=== PATIENT | female | born 1980 | race Caucasian/White ===

== ENCOUNTER 2019-08-29 19:01 | Emergency (ER) | payer OTHER, SELFPAY ==
--- NOTE | 2019-08-29 19:04 | ED.GENADULT ---
HPI - General Adult General Chief complaint: Dental/Oral Stated complaint: Toothache/Kidney infection Time Seen by Provider: 08/29/19 19:16 Source: patient and RN notes reviewed Mode of arrival: ambulatory Limitations: no limitations History of Present Illness HPI narrative: 39-year-old female presents with multiple complaints. She reports history of kidney infections, urinary tract infections, kidney stones. Reports 3-day history of dysuria, foul-smelling odor, left flank pain, urgency. Reports pain is not as severe as it gets when she has kidney stones. She denies fever, malaise. In a separate complaint she reports right lower dental pain. Reports broken tooth that has been infected before, she does not have dental charts and has been unable to get the tooth repaired or pulled. Reports 1 week history of pain in that tooth. Denies facial swelling. MD complaint: Tooth ache, urinary tract infection Related Data Allergies Allergy/AdvReac Type Severity Reaction Status Date / Time No Known Allergies Allergy Verified 06/12/19 17:14 Review of Systems Review of Systems: Narrative: CONSTITUTIONAL: Denies malaise, chills, sweats, or fever. EYES: Denies visual changes, redness, or discharge. ENT: Denies rhinorrhea, congestion, sinus pain, otalgia or sore throat. Reports right lower dentalgia CARDIOVASCULAR: Denies chest pain, palpitations, or edema. RESPIRATORY: Denies cough or dyspnea. GASTROINTESTINAL: Reports suprapubic pressure. Denies abdominal pain, nausea, vomiting, diarrhea GENITOURINARY: Reports urgency, dysuria, left flank pain. Denies hematuria, frequency SKIN: Denies rash or itching. MUSCULOSKELETAL: Reports left flank pain. Denies back pain, joint pain, or myalgia. NEUROLOGIC: Denies numbness, weakness, or headache. All systems reviewed & are unremarkable except as noted in HPI and below PMFSH Social History Social History Smoking status: Current every day smoker Alcohol intake: never Comments At time of signature, agree with nursing past medical, surgical, social and family history. There is no relevant family history pertinent to the presenting complaint Exam Narrative: Exam Narrative: GENERAL: Well-appearing, well-nourished, and in no acute distress. HEAD: Normocephalic, atraumatic. EYES: PERRLA, conjunctivae clear, and EOMI. No nystagmus. ENT: Nares clear, no rhinorrhea or epistaxis. Mucous membranes moist. Oropharynx without edema, erythema or lesions. No drooling. Missing teeth, broken teeth, caries. Tooth 32 broken with caries, appears impacted. No periapical abscess visible, no facial swelling noted NECK: Supple. No lymphadenopathy. CHEST: No respiratory distress. Clear to auscultation. No bony deformities, no asymmetry. Speaks in full sentences. HEART: Regular rate and rhythm. No murmur heard. ABDOMEN: Soft, suprapubic tenderness, otherwise none tender, obese, normal active bowel sounds, no palpable masses. SKIN: Warm, dry. NEURO: Alert and oriented x3. PSYCH: Normal mood and affect Course Course Emergency Course: Discussed with patient limited diagnostic availability at the [facility]. Instructed patient to go to emergency room if symptoms worsen or do not improve. Instructed patient she needs to find a dentist to get her tooth taken care of. Patient is aware of diagnosis, understands and agrees to treatment plan. Anticipatory guidance given. Patient agrees to follow-up as directed and is aware of reasons to seek care at the emergency department. Portions of this record may have been created with voice recognition software Vital Signs Vital signs: Vital Signs Temperature 99.4 F 08/29/19 19:15 Pulse Rate 87 08/29/19 19:15 Respiratory Rate 16 08/29/19 19:15 Blood Pressure 104/90 08/29/19 19:15 Pulse Oximetry 98 08/29/19 19:15 Temperature 99.4 F 08/29/19 19:15 Pulse Rate 87 08/29/19 19:15 Respiratory Rate
[2019-08-29 19:15] VITALS: BP 104/90; PULSE 87; RESP 16; TEMP 37.4; O2SAT 98
== END 2019-08-29 19:30 | disposition home or self-care (01) ==
PROVIDERS: Emergency Provider Nurse Practitioner; PCP Emergency Medicine
DX: K08.89 Other specified disorders of teeth and supporting structures (principal); N39.0 Urinary tract infection, site not specified; F17.200 Nicotine dependence, unspecified, uncomplicated
CPT/HCPCS: 81003; 87077; 87086; 87088; 87186; 99213; G0463

== ENCOUNTER 2020-04-10 16:21 | Emergency (ER) | payer OTHER, SELFPAY ==
[2020-04-10 16:29] VITALS: BP 119/91; PULSE 87; RESP 18; TEMP 37; O2SAT 98
--- NOTE | 2020-04-10 16:33 | ED.DENTAL ---
HPI - Dental/Oral General Chief complaint: Dental/Oral Stated complaint: Tooth Pain Time Seen by Provider: 04/10/20 16:34 Source: patient and RN notes reviewed Mode of arrival: ambulatory Limitations: no limitations History of Present Illness HPI Narrative: 39-year-old female presents with concern for right upper and lower dental pain. Reports a history of dental pain, reports she cannot see a dentist because she does not have dental insurance. She was seen in August 2019 and June 2019 for dental pain. MD Complaint: tooth pain Teeth map: 1. Broken tooth 2. Broken tooth Related Data Home Medications Medication Instructions Recorded Confirmed topiramate [Topamax] 50 mg PO HS 04/10/20 04/10/20 venlafaxine [Effexor XR] 150 mg PO DAILY 04/10/20 04/10/20 Allergies Allergy/AdvReac Type Severity Reaction Status Date / Time No Known Allergies Allergy Verified 04/10/20 16:36 Review of Systems Review of Systems: Narrative: CONSTITUTIONAL: Denies malaise, chills, sweats, or fever. EYES: Denies visual changes, redness, or discharge. ENT: Denies rhinorrhea, congestion, sinus pain, otalgia or sore throat. Reports right upper and lower dental pain CARDIOVASCULAR: Denies chest pain, palpitations, or edema. RESPIRATORY: Denies cough or dyspnea. GASTROINTESTINAL: Denies abdominal pain, nausea, vomiting SKIN: Denies facial swelling MUSCULOSKELETAL: Denies myalgia. NEUROLOGIC: Denies headache. All systems reviewed & are unremarkable except as noted in HPI and below PMFSH Past Medical History Medical History (Updated 04/10/20 @ 16:41 by Radha Marin NP) HTN (hypertension) Kidney stone Umbilical hernia fixed in 2016 Ventral hernia without obstruction or gangrene Surgical History Surgical History H/O section x4 Hx of tonsillectomy Family History Family History Other Diabetes mellitus Hypertension Social History Social History Smoking status: Current every day smoker Alcohol intake: never Gender identity (if verbalized by the patient): Female Comments At time of signature, agree with nursing past medical, surgical, social and family history. There is no relevant family history pertinent to the presenting complaint Exam Narrative: Exam Narrative: GENERAL: Well-appearing, well-nourished, and in no acute distress. HEAD: Normocephalic, atraumatic. EYES: PERRLA, conjunctivae clear, and EOMI. No nystagmus. ENT: Nares clear. Mucous membranes moist. Oropharynx without edema, erythema or lesions. Tonsils not enlarged and without exudate. Many broken teeth, missing teeth, caries. No periapical abscess noted NECK: Supple. No lymphadenopathy. CHEST: No respiratory distress. Speaks in full sentences. HEART: Regular rate and rhythm. SKIN: Warm, dry, no rash. NEURO: Alert and oriented x3. PSYCH: Normal mood and affect Course Course Emergency Course: Patient is aware of diagnosis, understands and agrees to treatment plan. Anticipatory guidance given. Patient agrees to follow-up as directed and is aware of reasons to seek care at the emergency department. Portions of this record may have been created with voice recognition software Vital Signs Vital signs: Vital Signs Temperature 98.6 F 04/10/20 16:29 Pulse Rate 87 04/10/20 16:29 Respiratory Rate 18 04/10/20 16:29 Blood Pressure 119/91 H 04/10/20 16:29 Pulse Oximetry 98 04/10/20 16:29 Temperature 98.6 F 04/10/20 16:29 Pulse Rate 87 04/10/20 16:29 Respiratory Rate 18 04/10/20 16:29 Blood Pressure 119/91 H 04/10/20 16:29 Pulse Oximetry 98 04/10/20 16:29 Reviewed. MDM - Dental/Oral MDM Narrative Medical decision making narrative: Patients pain and complaint coupled with physical findings are consistant with dentalgia. There are no
== END 2020-04-10 16:45 | disposition home or self-care (01) ==
PROVIDERS: Emergency Provider Nurse Practitioner; PCP Emergency Medicine
DX: K08.89 Other specified disorders of teeth and supporting structures (principal); F17.200 Nicotine dependence, unspecified, uncomplicated; I10 Essential (primary) hypertension; F41.9 Anxiety disorder, unspecified
CPT/HCPCS: 99213; G0463

== ENCOUNTER 2020-04-20 16:37 | Emergency (ER) | payer OTHER, SELFPAY ==
[2020-04-20 16:46] VITALS: BP 141/102; PULSE 101; RESP 16; TEMP 36.8; O2SAT 100
--- NOTE | 2020-04-20 16:46 | ED.GENADULT ---
HPI - General Adult General Chief complaint: Dental/Oral Stated complaint: Tooth Pain Time Seen by Provider: 04/20/20 16:46 Source: patient Mode of arrival: ambulatory Limitations: no limitations History of Present Illness HPI narrative: 39-year-old female patient presents to the [facility] with complaints of dental pain. Patient states she was seen here about 10 days ago by another provider and was given Augmentin and ketorolac at that time. Patient was given a list to follow-up with dentist but states that she never called anyone. Patient states that she does not have dental insurance and cannot afford to see a dentist. Patient states she finished her antibiotics yesterday however she woke up this morning continues to have pain to the broken tooth on the right lower oral cavity. Denies any fevers, body aches or chills. Denies any chest pain or shortness of breath. Related Data Home Medications Medication Instructions Recorded Confirmed topiramate [Topamax] 50 mg PO HS 04/10/20 04/10/20 venlafaxine [Effexor XR] 150 mg PO DAILY 04/10/20 04/10/20 Allergies Allergy/AdvReac Type Severity Reaction Status Date / Time No Known Allergies Allergy Verified 04/10/20 16:36 Review of Systems Review of Systems: Narrative: CONSTITUTIONAL: Denies fever, chills, or sweats. EYES: Denies visual changes, redness, or discharge. ENT: Denies rhinorrhea, congestion, sore throat, or otalgia. Positive right lower dental pain x2 weeks CARDIOVASCULAR: Denies chest pain, palpitations, or edema. RESPIRATORY: Denies cough or dyspnea. GASTROINTESTINAL: Denies abdominal pain, nausea, vomiting, or diarrhea. GENITOURINARY: Denies dysuria or hematuria. SKIN: Denies rash or itching. MUSCULOSKELETAL: Denies back pain, joint pain, or myalgia. NEUROLOGIC: Denies headache, numbness, or weakness. PSYCHIATRIC: Denies anxiety or depression. [facility] Past Medical History Medical History (Updated 04/20/20 @ 16:57 by CARLEEN Gill) HTN (hypertension) Kidney stone Umbilical hernia fixed in 2016 Ventral hernia without obstruction or gangrene Surgical History Surgical History H/O section x4 Hx of tonsillectomy Family History Family History Other Diabetes mellitus Hypertension Social History Social History Smoking status: Current every day smoker Alcohol intake: never Gender identity (if verbalized by the patient): Female Comments At the time of my signature I agree with nursing past medical history, surgical, social, and family history. There is no relevant family history pertinent to the presenting complaint. Exam Narrative: Exam Narrative: GENERAL: Well-appearing, well-nourished, and in no acute distress. HEAD: Normocephalic, atraumatic. EYES: PERRLA and EOMI. ENT: Nares clear, no rhinorrhea or epistaxis. Mucous membranes moist. Patient has a fractured tooth noted to the right lower molar. There is some surrounding erythema and tenderness. No swelling noted to the outside of the cheek. No obvious abscess noted at this time. NECK: Supple. No lymphadenopathy CHEST: Clear to auscultation. No respiratory distress. HEART: Regular rate and rhythm. No murmur heard. Normal peripheral pulses. ABDOMEN: Soft, nontender, nondistended, normal active bowel sounds. EXTREMITIES: Normal range of motion. No edema. SKIN: Warm, dry, no rash. NEURO: No focal deficits. Alert and oriented x3. Course Vital Signs Vital signs: Vital Signs Temperature 36.8 C 04/20/20 16:46 Pulse Rate 101 H 04/20/20 16:46 Respiratory Rate 16 04/20/20 16:46 Blood Pressure 141/102 H 04/20/20 16:46 Pulse Oximetry 100 04/20/20 16:46 Temperature 36.8 C 04/20/20 16:46 Pulse Rate 101 H 04/20/20 16:46 Respiratory Rate 16 04/20/20 16:46 Blood Pressure 141/102 H 04/03
== END 2020-04-20 17:01 | disposition home or self-care (01) ==
PROVIDERS: Emergency Provider Nurse Practitioner Family; PCP Emergency Medicine
DX: K08.89 Other specified disorders of teeth and supporting structures (principal); S02.5XXA Fracture of tooth (traumatic), initial encounter for closed fracture; X58.XXXA Exposure to other specified factors, initial encounter; F17.200 Nicotine dependence, unspecified, uncomplicated; I10 Essential (primary) hypertension
CPT/HCPCS: 99213; G0463

== ENCOUNTER 2020-07-01 15:17 | Outpatient (CLI) | payer OTHER, SELFPAY ==
--- NOTE | ~2020-07-01 | MR_ITS ---
EXAMINATION: MR brain/brain stem wo con EXAM DATE: 07/01/2020 16:00 INDICATION: Headache. TECHNIQUE: Magnetic resonance imaging (MRI) of the brain/brain stem obtained without contrast. Sagitt al T1, axial diffusion, gradient echo (T2*), T1, T2, FLAIR sequences obtained. There is no prior st udy for comparison. FINDINGS: Empty sellar turcica, finding which can be associated with idiopathic increased intracrania l pressure (pseudotumor cerebri). Some CSF fluid also surrounding the optic nerves which are otherwis e unremarkable. There are no areas of restricted diffusion to suggest acute infarction. There is no acute hemorrhage seen on the T2*, a hemosiderin sensitive sequence. No intraparenchymal brain mass. The ventricles are normal in size. There are no extra-axial collections. Flow voids are seen in the cerebral arteries on the T2-weighted sequences consistent with their expected patency. The orbits a re unremarkable. Soft tissue is unremarkable. IMPRESSION: 1. Empty sella, possible pseudotumor cerebri. 2. Otherwise unremarkable brain MRI. Reviewed, dictated and finalized at location B. TRICAL CONTROLS DESIGNER
== END 2020-07-01 15:18 | disposition home or self-care (01) ==
LOC: ANHIMG 15:18
PROVIDERS: PCP Emergency Medicine; Visit Provider Emergency Medicine
DX: R51.9 Headache, unspecified (principal)
CPT/HCPCS: 70551

== ENCOUNTER → 2020-09-09 02:33 | Outpatient (CLI) | payer OTHER, SELFPAY ==
[2020-09-09 22:46] LABS: SARS-CoV-2 RNA PCR Negative
== END ==
PROVIDERS: PCP Emergency Medicine; Visit Provider Psychiatry & Neurology Neurology
DX: Z01.812 Encounter for preprocedural laboratory examination (principal); Z20.822 Contact with and (suspected) exposure to COVID-19
CPT/HCPCS: C9803; U0003; U0005

== ENCOUNTER 2020-09-12 08:49 | Outpatient (CLI) | payer OTHER, SELFPAY ==
[2020-09-08 14:48] VITALS: BMI 37.3
[2020-09-12] VITALS (7 sets, daily range): BP systolic 123–155; BP diastolic 85–97; PULSE 65–81; RESP 16–28; O2SAT 96–98
--- NOTE | ~2020-09-12 | XR_ITS ---
EXAMINATION: XR lumbar puncture diagnostic DATE: 09/12/2020 12:01 INDICATION: Headache. TECHNIQUE: The procedure including the risks, benefits, and alternatives was discussed with the patie nt. Risks discussed included spinal headache, bleeding, and infection. The patient understood the ris ks and agreed to proceed. A timeout was performed to verify the patient's name, date of , and procedure to be performed. The skin overlying the L3-L4 and L2-L3 level was prepped and draped in u sual sterile fashion. Subcutaneous 1% lidocaine was used for local anesthesia. A 20 gauge spinal ne edle was advanced under fluoroscopic guidance. The needle was removed and the entry site was cleaned and dressed. There were no immediate complications. Fluoroscopy exposure time was 0.2 minutes. The t otal number of images was 3. FINDINGS: Real-time fluoroscopy demonstrates the needle at the L2-L3 level. The opening pressure was 23 cm water (Normal range is variably defined as 6-20 cm water and up to 25 cm water in obese patient s. Pressure >25 cm water is one of the modified Dandy criteria for idiopathic intracranial hypertensi on). 14 mL of clear, colorless fluid was collected in 4 tubes. IMPRESSION: 1. Successful fluoro-guided lumbar puncture. 2. Opening pressure of 23 cm water. Reviewed, dictated and finalized at location A. ESTING MANAGER
[2020-09-12 09:11] LABS: Mean Platelet Volume 11.1 fl (7.4-10.4); Platelet Count Result 250 k/mm3 (150-375)
[2020-09-12 09:23] LABS: INR 0.9; Prothrombin Time 12.8 Seconds (11.1-14.7)
[2020-09-12 12:02] LABS: Glucose CSF 58 mg/dL (40-70); Total Protein CSF 43 mg/dL (12-60)
[2020-09-12 12:10] LABS: Lymphocytes CSF 96 % (40-80); Monocytes CSF 4 % (15-45)
[2020-09-12 12:12] LABS: Appearance CSF Clear (Clear); CSF source CSF; Color CSF Colorless (Colorless); Nucleated Cell CSF 3 /uL (0-5); Red Blood Cell CSF 26 (0-2)
--- NOTE | 2020-09-12 13:55 | SUR.PHASEII ---
Dr. Casey updated on pt and OK with discharge
== END 2020-09-12 13:58 | disposition home or self-care (01) ==
PROVIDERS: Radiology Diagnostic Radiology; PCP Emergency Medicine; Visit Provider Psychiatry & Neurology Neurology
DX: R51.9 Headache, unspecified (principal)
CPT/HCPCS: 36415; 62328; 82945; 84157; 85049; 85610; 87070; 89051

== ENCOUNTER 2020-11-20 16:31 | Outpatient (CLI) | payer OTHER, SELFPAY ==
--- NOTE | ~2020-11-20 | MM_ITS ---
EXAMINATION: MM screening [facility] BI w tuan HISTORY: Screening TECHNIQUE: Craniocaudal and mediolateral oblique 3-D tomosynthesis images were obtained and synthetic 2-D images were generated. CAD analysis was submitted and interpreted. COMPARISON: 02/05/2019 BREAST PARENCHYMAL COMPOSITION: Breast composed of scattered areas of fibroglandular density. FINDINGS: Diminished size of masses in the upper outer quadrant of the left breast, previously charac terized as cysts by ultrasound. No new masses, calcifications or architectural distortion are identif ied to suggest malignancy. IMPRESSION: 1. No mammographic evidence of malignancy. 2. Recommend routine screening mammography in one year. BI-RADS Category 2: Benign finding(s). Reviewed, dictated and finalized at location A.
== END 2020-11-20 16:32 | disposition home or self-care (01) ==
LOC: ANHIMG 16:33
PROVIDERS: PCP Emergency Medicine; Visit Provider Emergency Medicine
DX: Z12.31 Encounter for screening mammogram for malignant neoplasm of breast (principal)
CPT/HCPCS: 77063; 77067

== ENCOUNTER 2021-06-14 15:21 | Emergency (ER) | payer OTHER, SELFPAY ==
[2021-06-14 15:34] VITALS: BP 131/88; PULSE 96; RESP 16; TEMP 37.6; O2SAT 100
--- NOTE | 2021-06-14 15:45 | ED.GENADULT ---
HPI - General Adult General Chief complaint: Back Pain/Injury Stated complaint: Back Pain,Neck Pain Time Seen by Provider: 06/14/21 15:45 Source: patient and family History of Present Illness HPI narrative: Patient was in close contact with a coworker who recently tested positive for COVID-19. Patient is fully vaccinated for COVID-19 but has not had her booster yet. Patient states she has had nausea a few loose stools generalized body aches and chills. No shortness of breath and no chest pain Related Data Home Medications Medication Instructions Recorded Confirmed venlafaxine [Effexor XR] 150 mg PO DAILY 04/10/20 06/14/21 tramadol 50 mg PO TID 09/08/20 06/14/21 buspirone 10 mg PO DAILY 06/14/21 06/14/21 irbesartan 150 mg PO DAILY 06/14/21 06/14/21 Allergies Allergy/AdvReac Type Severity Reaction Status Date / Time No Known Allergies Allergy Verified 06/14/21 15:41 Review of Systems Review of Systems: CONSTITUTIONAL: Denies chills, or sweats. Reports fever and generalized body aches EYES: Denies visual changes, redness, or discharge. ENT: Denies otalgia. Reports nasal congestion runny nose and sore throat CARDIOVASCULAR: Denies chest pain, palpitations, or edema. RESPIRATORY: Denies dyspnea. Reports occasional cough GASTROINTESTINAL: Denies abdominal pain, nausea, vomiting, or diarrhea. GENITOURINARY: Denies dysuria or hematuria. SKIN: Denies rash or itching. MUSCULOSKELETAL: Denies back pain, joint pain, or myalgia. Reports generalized body aches NEUROLOGIC: Denies headache, numbness, or weakness. PSYCHIATRIC: Denies anxiety or depression. [facility] Past Medical History Medical History (Updated 06/14/21 @ 15:53 by CARLEEN Montanez) HTN (hypertension) Kidney stone Umbilical hernia fixed in 2016 Ventral hernia without obstruction or gangrene Surgical History Surgical History H/O section x4 Hx of tonsillectomy Family History Family History Other Diabetes mellitus Hypertension Social History Social History (Reviewed 04/20/20 @ 16:46 by DON Gill Smoking status: Current every day smoker Alcohol intake: never Gender identity (if verbalized by the patient): Female Comments At time of signature, agree with nursing past medical, surgical, social and family history. There is no relevant family history pertinent to the presenting complaint Exam Narrative: The patient is a well-developed, well-nourished in no acute distress. SKIN: Skin is warm and dry without erythema, swelling or exudate. There is good turgor. No tenting. HEAD: Atraumatic. Normocephalic. No temporal or scalp tenderness. EYES: Moist and bright. Sclera and conjunctivae normal. No discharge. PERRLA. Extraocular motions intact. Gross visual acuity intact. EARS: Pinna is normal shape and contour. Clear external auditory canals. TM pearly fountain with good cone of light, no erythema or suppuration. Bilateral cerumen noted no gross hearing deficit. NOSE: pink, moist mucosa with good air movement. Clear rhinorrhea without nasal flaring. Septum midline. Mouth: moist mucous membranes. THROAT; mild erythema noted to posterior oropharynx with moderate postnasal drainage. Without exudate or ulceration.. Uvula midline. Normal movement of soft palate. NECK: Supple and nontender with full range of motion without discomfort. No meningeal signs. LUNGS: Equal and bilateral breath sounds without wheezes, rales or rhonchi. CHEST: The chest wall is without retractions or use of accessory muscles. HEART: Has a regular rate and rhythm without murmur, gallops, click or rub. ABDOMEN: Soft, nontender with positive active bowel sounds. No rebound tenderness. EXTREMITIES: Without cyanosis, clubbing or edema. Equal 2+ distal pulses and 2 second capillary refill noted. NEUROLOGIC: alert, active, . The patient moves all extremities
== END 2021-06-14 16:00 | disposition home or self-care (01) ==
PROVIDERS: Emergency Provider Nurse Practitioner Family; PCP Emergency Medicine
DX: J06.9 Acute upper respiratory infection, unspecified (principal); Z20.822 Contact with and (suspected) exposure to COVID-19; F17.200 Nicotine dependence, unspecified, uncomplicated; I10 Essential (primary) hypertension
CPT/HCPCS: 99213; G0463

== ENCOUNTER → 2021-06-15 08:35 | Outpatient (CLI) | payer OTHER, SELFPAY ==
[2021-06-15 19:24] LABS: SARS-CoV-2 RNA PCR Negative
== END ==
PROVIDERS: PCP Emergency Medicine; Visit Provider Nurse Practitioner Family
DX: J06.9 Acute upper respiratory infection, unspecified (principal); Z20.822 Contact with and (suspected) exposure to COVID-19
CPT/HCPCS: C9803; U0003; U0005

== ENCOUNTER 2022-07-14 09:50 | Outpatient (CLI) | payer OTHER, SELFPAY ==
--- NOTE | ~2022-07-14 | CT_ITS ---
EXAMINATION: CT abdomen pelvis wo/w con DATE: 07/14/2022 10:32 INDICATION: History of renal stones TECHNIQUE: Computed tomography (CT) of the abdomen and pelvis was performed without intravenous contr ast. CT of the abdomen and pelvis was then performed with a total of 130 mL Omnipaque 350 intravenous contrast using a double-bolus technique for simultaneous opacification of the renal parenchyma and r enal collecting system. The dose-length product (DLP) was 2515.28 mGy-cm. Automated exposure control and iterative reconstruction technique were employed. COMPARISON: 03/27/2019 FINDINGS: The lung bases are clear. The heart size is normal. There is a small sliding hiatal hernia. The liver, spleen, pancreas, gallbladder, and adrenal glands are normal. There is a 2 mm stone of th e left mid ureter. There is no significant hydronephrosis or hydroureter however there is mild inflam matory change near the left renal pelvis. There are at least six stones of the left kidney which jose ure up to 10 mm. There are three nonobstructing stones of the right kidney which measure up to 4 mm. There is a 6 mm hemorrhagic cyst of the right kidney. Cysts of the right kidney measure up to 4 cm. T here is a 5 mm cyst of the left kidney. No suspicious renal or urothelial lesion identified. There ar e areas of cortical scarring in the left kidney. No pathologically enlarged abdominal or pelvic lymph nodes are identified. There is no free intraperitoneal gas or evidence of bowel obstruction. The scooby endix is normal. There is moderate lumbar spondylosis at L4-5. There is a small umbilical hernia cont aining fat. IMPRESSION: 1. 2 mm stone of the left mid ureter. 2. Bilateral nonobstructing nephrolithiasis. 3. No suspicious renal or urothelial lesion identified. Reviewed, dictated and finalized at location B. TRIC LOCOMOTIVE CRANE OPERATOR
[2022-07-14 10:15] LABS: Estimated Glomerular Filt Rate 54
== END 2022-07-14 09:51 | disposition home or self-care (01) ==
LOC: ANHIMG 09:51
PROVIDERS: PCP Emergency Medicine; Visit Provider Emergency Medicine
DX: N20.2 Calculus of kidney with calculus of ureter (principal)
CPT/HCPCS: 74178; Q9967

== ENCOUNTER 2022-08-26 16:36 | Outpatient (CLI) | payer OTHER, SELFPAY ==
--- NOTE | ~2022-08-26 | MM_ITS ---
EXAMINATION: MM screening [facility] BI w tuan HISTORY: Screening mammogram TECHNIQUE: Craniocaudal and mediolateral oblique 3-D tomosynthesis images were obtained and synthetic 2-D images were generated. CAD analysis was submitted and interpreted. COMPARISON: 11/20/2020 bilateral screening mammogram 02/05/2019 bilateral diagnostic mammogram and limited left breast ultrasound examination BREAST PARENCHYMAL COMPOSITION: There are scattered areas of fibroglandular density. FINDINGS: There is no evidence of suspicious mass, calcification, or architectural distortion to sugg est malignancy in either breast. There has been no suspicious interval change. IMPRESSION: 1. No mammographic evidence of malignancy. 2. Recommend routine screening mammography in one year. BI-RADS Category 1: Negative Reviewed, dictated and finalized at location A. WAL SPECIALIST
== END 2022-08-26 16:37 | disposition home or self-care (01) ==
PROVIDERS: PCP Emergency Medicine; Visit Provider Emergency Medicine
DX: Z12.31 Encounter for screening mammogram for malignant neoplasm of breast (principal)
CPT/HCPCS: 77063; 77067

== ENCOUNTER 2022-10-09 17:45 | Emergency (ER) | payer BC, OTHER, SELFPAY ==
--- NOTE | 2022-10-09 17:51 | ED.GENADULT ---
HPI - General Adult General Chief complaint: Abdominal Pain Stated complaint: sever abd pain left side/tooth pain Time Seen by Provider: 10/09/22 17:54 Source: patient, RN notes reviewed and old records reviewed Mode of arrival: ambulatory Limitations: no limitations History of Present Illness HPI narrative: 42-year-old female presents to the [facility] with left for about sided abdominal pain/left flank pain since this morning. Has taken tylenol about 3 hours [employer]. Reports fever, still febrile in clinic. Patient states ?it feels like my insides are being ripped out. ? Patient has a history of pyelonephritis, kidney stones. Denies any nausea or vomiting. Denies any chest pain or shortness of breath. Patient is also complaining of left lower dental pain and swelling. Onset (ago): hour(s) (12) Related Data Home Medications Medication Instructions Recorded Confirmed venlafaxine 150 mg 150 mg PO DAILY 04/10/20 06/14/21 capsule,extended release 24 hr (Effexor XR) tramadol 50 mg tablet 50 mg PO TID 09/08/20 06/14/21 buspirone 10 mg tablet 10 mg PO DAILY 06/14/21 06/14/21 irbesartan 150 mg tablet 150 mg PO DAILY 06/14/21 06/14/21 atogepant 60 mg tablet (Qulipta) 60 mg PO DAILY 10/09/22 10/09/22 indomethacin 50 mg capsule 50 mg PO DAILY 10/09/22 10/09/22 omeprazole 20 mg capsule,delayed 20 mg PO DAILY 10/09/22 10/09/22 release phentermine 37.5 mg tablet 37.5 mg PO DAILY 10/09/22 10/09/22 Allergies Allergy/AdvReac Type Severity Reaction Status Date / Time No Known Allergies Allergy Verified 10/09/22 17:53 Review of Systems Review of Systems: All systems reviewed & are unremarkable except as noted in HPI and below Constitutional: Constitutional: Reports no additional constitutional complaints Eyes: Eyes: Reports no additional eye complaints ENT: Reports as per HPI and Reports dental pain Cardiovascular: Cardiovascular: Reports no additional cardiovascular complaints, Denies chest pain and Denies dyspnea Respiratory: Respiratory: Reports no additional respiratory complaints, Denies chest congestion, Denies cough and Denies dyspnea Gastrointestinal: Gastrointestinal: Reports as per HPI, Reports abdominal pain, Denies nausea and Denies vomiting Genitourinary: Genitourinary: Reports as per HPI Musculoskeletal: Musculoskeletal: Reports no additional musculoskeletal complaints Integumentary/Breasts: Skin/Breast: Reports system reviewed and no additional complaints, except as docu Neurologic: Reports system reviewed and no additional complaints, except as documented Psychiatric: Psychiatric: Reports no additional psychiatric complaints Allergic/Immunologic: Allergic/Immunologic: Reports no additional allergic/immunologic complaints PMFSH Past Medical History Medical History (Updated 10/09/22 @ 18:20 by Radha Brandt APRN) HTN (hypertension) Kidney stone Umbilical hernia fixed in 2016 Ventral hernia without obstruction or gangrene Surgical History Surgical History H/O section x4 Hx of tonsillectomy Family History Family History Other Diabetes mellitus Hypertension Social History Social History Smoking status: Current every day smoker Alcohol intake: never Gender identity (if verbalized by the patient): Female Comments At the time of my signature, I reviewed and agree with the nursing past medical, surgical, social, and family history. There is no relevant family history pertinent to the patient complaint. Exam Const: General: cooperative, healthy appearing, comfortable, no acute distress, well developed, alert and well nourished Nutritional Appearance: well nourished and obese Orientation/consciousness: patient oriented x3 Limitations: no limitations HENMT: Head: normal to inspection Ears: hearing gross
[2022-10-09 18:00] VITALS: BP 117/80; PULSE 138; RESP 16; TEMP 38.7; O2SAT 98
[2022-10-09 18:18] VITALS: BP 117/80; PULSE 138; RESP 16; TEMP 38.7; O2SAT 98
== END 2022-10-09 18:13 | disposition short-term general hospital (02) ==
PROVIDERS: Emergency Provider Nurse Practitioner; PCP Emergency Medicine
DX: R10.9 Unspecified abdominal pain (principal); K04.7 Periapical abscess without sinus; F17.200 Nicotine dependence, unspecified, uncomplicated; I10 Essential (primary) hypertension
CPT/HCPCS: 81003; 99211; G0463

== ENCOUNTER 2022-10-09 18:32 | Inpatient (IN) | payer BC, OTHER, SELFPAY ==
--- NOTE | ~2022-10-09 | XR_ITS ---
EXAMINATION: XR retrograde pyelo w/stent LT DATE: 10/10/2022 9:15 CDT INDICATION: CYSTO/RETRO STENT PLACEMENT ON LEFT . TECHNIQUE: 3 fluoroscopic images including a cine clip of 19 images of the left abdomen were obtained during cystoscopy and left retrograde stent placement performed by the surgeon. I was not present in the operating room. Fluoroscopy exposure time was 16.7 seconds. DAP [id number] mGym2. COMPARISON: CTA chest abdomen pelvis 10/09/2022 FINDINGS: Cine images demonstrate contrast filling a normal diameter left ureter. Small defects in the proximal ureter left UPJ likely represent the previously documented stones. Ureteral stent deployment, proxim al coil projecting over the expected location. Distal coil not imaged. IMPRESSION: Fluoroscopic documentation of cystoscopy and left retrograde stent placement. Please refer to the ope rative note for complete procedural details . Reviewed, dictated and finalized at location K. IMPRESSION: Fluoroscopic documentation of cystoscopy and left retrograde stent placement. P lease refer to the operative note for complete procedural details .
--- NOTE | ~2022-10-09 | CT_ITS ---
EXAMINATION: CTA chest abdomen pelvis DATE: 10/09/2022 21:17 INDICATION: Chest pain, abdominal pain, back pain rule out dis . TECHNIQUE: Computed tomography angiography (CTA) of the chest, abdomen, and pelvis was performed with 100 mL Omnipaque-350 intravenous contrast, timed for arterial phase imaging. Automated exposure cont rol and iterative reconstruction technique were employed. The dose-length product was 1550.05 mGy-cm. COMPARISON: CT abdomen and pelvis 07/14/2022, 03/27/2019 FINDINGS: CHEST: Thoracic aorta: No significant dilation or calcification. Lung parenchyma and airways: Lungs and airways are clear. Thoracic inlet, axillae and chest wall: No thyroid or soft tissue mass. No axillary lymphadenopathy. Mediastinum: No mass or lymphadenopathy. Heart and pericardium: Normal heart size. No pericardial effusion. Coronary artery calcifications: Absent. Pleura: No effusion or mass. Thoracic bones: No acute osseous finding in the chest. ABDOMEN/PELVIS: Liver: Mild hepatomegaly. Diffuse fatty infiltration. Biliary/Gallbladder: Distended gallbladder. No stones, wall thickening, pericholecystic fluid. No michelle e duct dilation. Pancreas: No mass or duct dilation. Spleen: Normal. Adrenals:No mass. Kidneys: Moderate caliectasis and pelviectasis on the left. 7 mm calcification in the left UVJ. 4 mm calcification in the proximal left ureter. Mild left perinephric stranding. Delayed left nephrogram w ith patchy parenchymal enhancement. Multiple additional nonobstructing bilateral renal calculi. Left renal scarring. Right renal cysts and lesions that are too small to characterize but also likely repr esent cysts. GI tract: Mild distal esophageal and gastric wall edema No small or large bowel dilation. Normal appe ndix. Mesentery/Peritoneum: No ascites, mass, or free air. Retroperitoneum: No mass . Mild atherosclerotic abdominal aortic and/or arterial calcifications. Pelvis: Pelvic organs are within normal limits Soft Tissues: Small fat-containing uncomplicated umbilical hernia Abdominopelvic bones: No acute osseous finding in the abdomen/pelvis. IMPRESSION: 1. 7 mm left UPJ and 4 mm proximal left ureteral calcifications causing moderate obstructive uropathy , possibly complicated by pyelonephritis. 2. Mild esophagitis/gastritis. 3. Gallbladder hydrops, possibly related to fasting, correlate with right upper quadrant pain and michelle iary labs. 4. No CT evidence of aortic dissection. Reviewed, dictated and finalized at location K. IMPRESSION: 1. 7 mm left UPJ and 4 mm proximal left ureteral calcifications causing moderat e obstructive uropathy, possibly complicated by pyelonephritis. 2. Mild esophagitis/gastritis. 3. Gallbladder hydrops, possibly related to fasting, correlate with right upper quadrant pain and biliary labs. 4. No CT evidence of aortic dissection.
[2022-10-09 18:39] VITALS: BP 125/85; PULSE 132; RESP 18; TEMP 37.1; O2SAT 99
--- NOTE | 2022-10-09 18:42 | ECG_ITS ---
Measurements Intervals [place] Rate: 67 P: 37 CO: 141 QRS: -3 QRSD: 94 T: 23 QT: 372 QTc: 394 Interpretive Statements SINUS RHYTHM LOW QRS VOLTAGE IN PRECORDIAL LEADS BORDERLINE ECG NO PREVIOUS ECG AVAILABLE FOR COMPARISON Electronically Signed On 10-10-2022 13:38:06 CDT by Norberto Strong M.D.
[2022-10-09 19:05] LABS: Basophils Absolute Auto 0.1 K/mm3 (0.0-0.1); Basophils Percent Auto 0.4 % (0.2-1.2); Eosinophils Percent Auto 0.2 % (0-4.4); Hemoglobin 13.3 g/dL (12.0-15.0); Immature Granulocyte Absolute 0.06 K/mm3 (0.00-0.031); Immature Granulocyte Percent A 0.4 % (0-0.5); Lymphocytes Absolute Auto 1.12 K/mm3 (0.9-3.2); Lymphocytes Percent Auto 7.7 % (18.3-44.2); Mean Corpuscular HGB Conc 31.7 g/dl (32-36); Mean Corpuscular Hemoglobin 31.3 pg (26-34); Mean Corpuscular Volume 98.8 fl (80-100); Monocytes Absolute Auto 0.1 K/mm3 (0.1-0.6); Monocytes Percent Auto 0.4 % (2.6-8.5); Neutrophils Absolute Auto 13.1 K/mm3 (1.3-6.7); Neutrophils Percent Auto 90.9 % (45.5-73.1); Platelet Count Result 245 k/mm3 (150-375); Red Blood Count 4.25 M/mm3 (4.2-5.4); Red Cell Distribution Width 12.9 % (11.5-14.5); White Blood Count 14.5 K/mm3 (4.5-10.0)
[2022-10-09 19:15] LABS: Alanine Aminotransferase 47 U/L (6-35); Albumin Level 4.5 g/dL (3.5-5.1); Alkaline Phosphatase 120 U/L (38-126); Anion Gap 13 mmol/L (8-16); Aspartate Amino Transferase 52 U/L (14-36); Bilirubin,Total 0.7 mg/dL (0.2-1.3); Blood Urea Nitrogen 17 mg/dL (7-17); Calcium 9.2 mg/dL (8.4-10.2); Carbon Dioxide 26 mmol/L (22-30); Chloride 101 mmol/L (98-107); Estimated CRCL calculation 73 ml/min; Estimated Glomerular Filt Rate 60; Glucose 113 mg/dL (65-110); Lipase 53 U/L (23-300); Potassium 3.7 mmol/L (3.4-5.0); Sodium 140 mmol/L (137-145)
--- NOTE | 2022-10-09 19:15 | ED.ABDPAIN ---
HPI - Abdominal Pain General Chief Complaint: Abdominal Pain Stated Complaint: left flank pain Time Seen by Provider: 10/09/22 19:15 Source: patient and family History of Present Illness HPI narrative: 42 years old white female presented to the ED with left lower quadrant pain started 5 AM today, gradually got worse. History of kidney stone. Patient is screaming, saying that he is going to , she have sepsis all over her blood she can feel it, she had pain going all over her abdomen right now going to her lower extremities and going to her back and chest. And her neck hurt, with headache Related Data Home Medications Medication Instructions Recorded Confirmed venlafaxine 150 mg 150 mg PO DAILY 04/10/20 10/09/22 capsule,extended release 24 hr (Effexor XR) tramadol 50 mg tablet 50 mg PO TID 09/08/20 10/09/22 buspirone 10 mg tablet 10 mg PO DAILY 06/14/21 10/09/22 irbesartan 150 mg tablet 150 mg PO DAILY 06/14/21 10/09/22 atogepant 60 mg tablet (Qulipta) 60 mg PO DAILY 10/09/22 10/09/22 indomethacin 50 mg capsule 50 mg PO DAILY 10/09/22 10/09/22 omeprazole 20 mg capsule,delayed 20 mg PO DAILY 10/09/22 10/09/22 release phentermine 37.5 mg tablet 37.5 mg PO DAILY 10/09/22 10/09/22 Allergies Allergy/AdvReac Type Severity Reaction Status Date / Time No Known Allergies Allergy Verified 10/09/22 17:53 Review of Systems Review of Systems: All systems reviewed & are unremarkable except as noted in HPI and below PMFSH Past Medical History Medical History (Updated 10/09/22 @ 22:21 by Vivi Morales MD) HTN (hypertension) Kidney stone Umbilical hernia fixed in 2016 Ventral hernia without obstruction or gangrene Surgical History Surgical History H/O section x4 Hx of tonsillectomy Family History Family History Other Diabetes mellitus Hypertension Social History Social History Smoking status: Current every day smoker Alcohol intake: never Gender identity (if verbalized by the patient): Female Exam Narrative: General appearance: Well-developed, well-nourished, restless, anxious, cannot lay still, screaming, crying Skin: Normal color Head: Normocephalic, nontraumatic Eyes: Clear conjunctiva Neck: Supple, nontender Chest and respiratory: Airway patent, no respiratory distress, no accessory muscle use Heart: Tachycardia Abdomen: Diffuse tenderness mainly left lower quadrant Vascular: Normal peripheral pulses, normal capillary refill. Musculoskeletal: Normal range of motion, thoracic spine tenderness, no bruises or rash Neurologic: Alert and oriented ?3, agitated, anxious, cannot listen to questions Course Reevaluation(s) Reevaluation #1: Patient got better immediately after 2 mg of Ativan IM, later 0.5 mg Dilaudid IV and 4 mg of Zofran IV. Currently patient feeling much better, calm and cooperative Date: 10/09/22 Time: 22:14 Vital Signs Vital signs: Vital Signs Temperature 37.1 C 10/09/22 18:39 Pulse Rate 132 H 10/09/22 18:39 Respiratory Rate 18 10/09/22 18:39 Blood Pressure 125/85 10/09/22 18:39 Pulse Oximetry 99 10/09/22 18:39 Oxygen Delivery Room Air 10/09/22 18:39 Temperature 37.1 C 10/09/22 18:39 Pulse Rate 125 H 10/09/22 22:20 Respiratory Rate 12 10/09/22 22:20 Blood Pressure 91/72 L 10/09/22 22:20 Pulse Oximetry 97 10/09/22 22:20 Oxygen Delivery Room Air 10/09/22 18:39 MDM - Abdominal Pain MDM Narrative Medical decision making narrative: Patient is 42 years old presents with severe
[2022-10-09 19:18] VITALS: BP 120/84; PULSE 120; RESP 25; O2SAT 100
[2022-10-09] MEDS: LORazepam INJ (*CRX) 2 MG/ML VIAL IM (19:30)
[2022-10-09] MEDS: ONDANSETRON INJ 4 MG/2 ML VIAL IV PUSH (19:42)
[2022-10-09] MEDS: HYDROmorphone HCL INJ (*CRX) 1 MG/ML SYR 0.5 MG IV PUSH (19:42)
[2022-10-09] MEDS: SODIUM CHLORIDE 0.9% IV 1,000 ML 999 ML IV CONT (19:43)
[2022-10-09 20:53] VITALS: BP 106/50; PULSE 124; RESP 29; O2SAT 96
[2022-10-09 21:04] VITALS: BP 91/66; PULSE 120; RESP 24; O2SAT 98
[2022-10-09 21:14] LABS: Appearance Urine Turbid (Clear); Bacteria Urine 4+ /hpf; Bilirubin Urine Negative (Negative); Blood Urine 3+ (Negative); Color Urine Dark Yellow (Yellow); Glucose Urine UA Negative (Negative); Ketones Urine Trace mg/dL (Negative); Leukocyte Esterase Ur 3+ LEU/UL (Negative); Mucus Urine Present /lpf; Need Manual Microscopic Reviewed; Nitrate Urine Positive (Negative); Non Pathogenic Casts >20; Protein Urine 2+ mg/dL (Negative); RBC Urine 51-100 /hpf (0-2); Specific Grav Ur 1.031 (1.001-1.035); Squamous Epithelial Cell Urine Many /hpf (Few); WBC Urine >100 /hpf
[2022-10-09 21:16] LABS: Add Urine Microscopic? YES
[2022-10-09 22:20] VITALS: BP 91/72; PULSE 125; RESP 12; O2SAT 97
--- NOTE | 2022-10-09 22:27 | PM.IMHP ---
H&P: HPI History of Present Illness Date/Time: 10/09/22 22:27 Chief Complaint: Left flank pain Narrative: This is a 42-year-old female with past medical history significant for hypertension, GERD, dyslipidemia, nephrolithiasis, depression and anxiety. Patient presents to the emergency room due to left flank pain, nausea, vomiting. Rates pain at 10/10 in intensity radiates to the groin area. Patient has had chills, poor appetite. Preliminary workup was significant for CT of abdomen and pelvis with left-sided 7 mm stone, urinalysis was significant for numerous WBCs present. CT abdomen and pelvis FINDINGS: CHEST: Thoracic aorta: No significant dilation or calcification. Lung parenchyma and airways: Lungs and airways are clear. Thoracic inlet, axillae and chest wall: No thyroid or soft tissue mass. No axillary lymphadenopathy. Mediastinum: No mass or lymphadenopathy. Heart and pericardium: Normal heart size. No pericardial effusion. Coronary artery calcifications: Absent. Pleura: No effusion or mass. Thoracic bones: No acute osseous finding in the chest. ABDOMEN/PELVIS: Liver: Mild hepatomegaly. Diffuse fatty infiltration.? Biliary/Gallbladder: Distended gallbladder. No stones, wall thickening, pericholecystic fluid. No bile duct dilation. Pancreas: No mass or duct dilation. Spleen: Normal. Adrenals:No mass. Kidneys: Moderate caliectasis and pelviectasis on the left. 7 mm calcification in the left UVJ. 4 mm calcification in the proximal left ureter. Mild left perinephric stranding. Delayed left nephrogram with patchy parenchymal enhancement. Multiple additional nonobstructing bilateral renal calculi. Left renal scarring. Right renal cysts and lesions that are too small to characterize but also likely represent cysts. GI tract: Mild distal esophageal and gastric wall edema No small or large bowel dilation. Normal appendix. Mesentery/Peritoneum: No ascites, mass, or free air. Retroperitoneum: No mass . Mild atherosclerotic abdominal aortic and/or arterial calcifications. Pelvis: Pelvic organs are within normal limits Soft Tissues: Small fat-containing uncomplicated umbilical hernia Abdominopelvic bones:? No acute osseous finding in the abdomen/pelvis. IMPRESSION: 1. 7 mm left UPJ and 4 mm proximal left ureteral calcifications causing moderate obstructive uropathy, possibly complicated by pyelonephritis. 2. Mild esophagitis/gastritis. 3. Gallbladder hydrops, possibly related to fasting, correlate with right upper quadrant pain and biliary labs. 4. No CT evidence of aortic dissection. Patient is been admitted for further evaluation management and treatment. Review of Systems Review of Systems: Left flank pain, nausea, vomiting, chills Constitutional: Constitutional: Reports chills, Reports malaise and Reports poor appetite Eyes: Eyes: Denies change in vision ENT: Denies dysphagia and Denies odynophagia Cardiovascular: Cardiovascular: Denies chest pain, Denies radiating jaw, neck or arm pain, Denies palpitations and Denies dyspnea Respiratory: Respiratory: Denies chest congestion, Denies cough, Denies pain on inspiration and Denies dyspnea Gastrointestinal: Gastrointestinal: Denies dyspepsia, Denies heartburn, Reports nausea and Reports vomiting Genitourinary: Genitourinary: Reports flank pain (Left side) Musculoskeletal: Musculoskeletal: Denies myalgias, Denies arthralgias, Denies joint swelling and Denies muscle weakness Integumentary/Breasts: Skin/Breast: Denies rash Neurologic: Denies focal weakness and Denies Sensory deficit (Neuro) Psychiatric: Psychiatric: Reports no additional psychiatric complaints and Reports as per HPI Endocrine: Endocrine: Denies cold intolerance, Denies flushing, Denies heat intolerance, Denies polyphagia, Denies polydipsia and Denies palpitations Hematologic/Lymphatic: Hematologic/Lymphatic: Reports no additional hematologic/lymphatic complaints and Reports as per HPI Allergic/Immunologi
[2022-10-09 23:05] VITALS: BP 126/58; PULSE 114; RESP 18; TEMP 36.5; O2SAT 97; BMI 42.0
[2022-10-09] MEDS: SODIUM CHLORIDE 0.9% IV 1,000 ML 125 ML IV CONT (23:32)
[2022-10-10] VITALS (9 sets, daily range): BP systolic 86–119; BP diastolic 58–79; PULSE 110–124; RESP 16–33; TEMP 36.2–37.7; O2SAT 90–99; BMI 42.0
[2022-10-10] MEDS: HYDROmorphone HCL INJ (*CRX) 1 MG/ML SYR IV PUSH ×6 (00:15→21:32)
--- NOTE | 2022-10-10 04:03 | PC.NURSE ---
pt a&o x4, able to make needs known. present in the room. pt informed about safety precautions, how to call for help. pt resting in bed. pain medication administered per pt's request. ice chips provided per pt's request. this brief writer explained that pt is NPO status for the surgical procedure at 09:00. pt verbalized understanding. medications explained, home medications reconciled. no further questions.
[2022-10-10 06:43] LABS: Basophils Absolute Auto 0.1 K/mm3 (0.0-0.1); Basophils Percent Auto 0.2 % (0.2-1.2); Eosinophils Absolute Auto 0.1 K/mm3 (0-0.3); Eosinophils Percent Auto 0.3 % (0-4.4); Hematocrit 36.4 % (37.0-47.0); Hemoglobin 11.6 g/dL (12.0-15.0); Immature Granulocyte Absolute 0.18 K/mm3 (0.00-0.031); Immature Granulocyte Percent A 0.8 % (0-0.5); Lymphocytes Absolute Auto 0.89 K/mm3 (0.9-3.2); Lymphocytes Percent Auto 3.9 % (18.3-44.2); Mean Corpuscular HGB Conc 31.9 g/dl (32-36); Mean Corpuscular Hemoglobin 30.6 pg (26-34); Mean Platelet Volume 11.5 fl (7.4-10.4); Monocytes Absolute Auto 1.4 K/mm3 (0.1-0.6); Neutrophils Absolute Auto 20.1 K/mm3 (1.3-6.7); Neutrophils Percent Auto 88.8 % (45.5-73.1); Platelet Count Result 238 k/mm3 (150-375); Red Blood Count 3.79 M/mm3 (4.2-5.4); Red Cell Distribution Width 13.2 % (11.5-14.5); White Blood Count 22.6 K/mm3 (4.5-10.0)
[2022-10-10] MEDS: ONDANSETRON INJ 4 MG/2 ML VIAL IV PUSH (08:00)
[2022-10-10 08:39] LABS: Alanine Aminotransferase 35 U/L (6-35); Albumin Level 3.7 g/dL (3.5-5.1); Alkaline Phosphatase 104 U/L (38-126); Anion Gap 7 mmol/L (8-16); Aspartate Amino Transferase 35 U/L (14-36); Bilirubin,Total 0.6 mg/dL (0.2-1.3); Blood Urea Nitrogen 19 mg/dL (7-17); Calcium 8.8 mg/dL (8.4-10.2); Carbon Dioxide 28 mmol/L (22-30); Chloride 102 mmol/L (98-107); Estimated CRCL calculation 63 ml/min; Estimated Glomerular Filt Rate 49; Glucose 96 mg/dL (65-110); Potassium 4.5 mmol/L (3.4-5.0); Sodium 137 mmol/L (137-145)
--- NOTE | 2022-10-10 08:39 | WPDANESEPPF ---
Anes - Initial Pre Proc Eval Procedure: Operation Date: 10/10/22 08:45 Proposed Procedures p Cysto, RPG, Stone Ext, Stent Placement - Gaurav Moreno MD Date/Time: 10/10/22 08:39 Surgeon: Shandra Cee MD Pre Op Diagnosis: Kidney Stone, Pyelonephritis Patient Data Age: 42 Gender: F Height: 1.6 m Weight: 107.8 kg Last Vital Signs Temp 36.9 C 10/10/22 02:57 Pulse 114 H 10/10/22 04:26 Resp 18 10/10/22 04:26 BP 108/74 10/10/22 02:57 Pulse Ox 98 10/10/22 04:26 O2 Del Method Room Air 10/10/22 04:26 Allergies Allergy/AdvReac Type Severity Reaction Status Date / Time No Known Allergies Allergy Verified 10/09/22 17:53 Home Medications Medication Instructions Recorded Confirmed Type venlafaxine 150 mg 150 mg PO DAILY 04/10/20 10/10/22 History capsule,extended release 24 hr (Effexor XR) tramadol 50 mg tablet 50 mg PO TID 09/08/20 10/10/22 History buspirone 10 mg tablet 10 mg PO DAILY 06/14/21 10/10/22 History irbesartan 150 mg tablet 150 mg PO DAILY 06/14/21 10/10/22 History atogepant 60 mg tablet (Qulipta) 60 mg PO DAILY 10/09/22 10/10/22 History indomethacin 50 mg capsule 50 mg PO DAILY 10/09/22 10/10/22 History omeprazole 20 mg capsule,delayed 20 mg PO DAILY 10/09/22 10/10/22 History release phentermine 37.5 mg tablet 37.5 mg PO DAILY 10/09/22 10/10/22 History rosuvastatin 10 mg tablet (Crestor) 10 mg PO DAILY 10/10/22 10/10/22 History Laboratory Tests 10/09/22 10/09/22 10/09/22 18:56 18:56 20:51 WBC 14.5 K/mm3 H K/mm3 (4.5-10.0) RBC 4.25 M/mm3 M/mm3 (4.2-5.4) Hgb 13.3 g/dL g/dL (12.0-15.0) Hct 42.0 % % (37.0-47.0) MCV 98.8 fl fl (80-100) MCH 31.3 pg pg (26-34) MCHC 31.7 g/dl L g/dl (32-36) RDW 12.9 % % (11.5-14.5) Plt Count 245 k/mm3 k/mm3 (150-375) MPV 11.0 fl H fl (7.4-10.4) Immature Gran % (Auto) 0.4 % % (0-0.5) Neut % (Auto) 90.9 % H % (45.5-73.1) Lymph % (Auto) 7.7 % L % (18.3-44.2) Lamb % (Auto) 0.4 % L % (2.6-8.5) Eos % (Auto) 0.2 % % (0-4.4) Baso % (Auto) 0.4 % % (0.2-1.2) Lymph # (Auto) 1.12 K/mm3 K/mm3 (0.9-3.2) Lamb # (Auto) 0.1 K/mm3 K/mm3 (0.1-0.6) Eos # (Auto) 0.0 K/mm3 K/mm3 (0-0.3) Baso # (Auto) 0.1 K/mm3 K/mm3 (0.0-0.1) Abs Immat Gran (auto) 0.06 K/mm3 H K/mm3 (0.00-0.031) Absolute Neuts (auto) 13.1 K/mm3 H K/mm3 (1.3-6.7) Absolute Nucleated RBC 0.0 K/mm3 K/mm3 (0.0-0.012) Nucleated RBC % 0.0 % % (0.0-0.2) Sodium 140 mmol/L mmol/L (137-145) Potassium 3.7 mmol/L mmol/L (3.4-5.0) Chloride 101 mmol/L mmol/L (98-107) Carbon Dioxide 26 mmol/L mmol/L (22-30) Anion Gap 13 mmol/L mmol/L (8-16) BUN 17 mg/dL mg/dL (7-17) Creatinine 1.00 mg/dL mg/dL (0.7-1.0) Estim Creat Clear Calc 73 ml/min ml/min Estimated GFR 60 (59 - ) Glucose 113 mg/dL H mg/dL (65-110) Calcium 9.2 mg/dL mg/dL (8.4-10.2) Total Bilirubin 0.7 mg/dL mg/dL (0.2-1.3) AST 52 U/L H U/L (14-36) ALT 47 U/L H U/L (6-35) Alkaline Phosphatase 120 U/L U/L (38-126) Total Protein 8.0 g/dL g/dL (6.3-8.2) Albumin 4.5 g/dL g/dL (3.5-5.1) Lipase 53 U/L U/L (23-300) Urine Color Dark yellow (Yellow) Urine Appearance Turbid H (Clear) Urine pH 5.0 (5.0-9.0) Ur Specific [place] 1.031 (1.001-1.035) Urine Protein 2+ mg/dL H mg/dL (Negative) Urine Glucose (UA) Negative mg/dL mg/dL (Negative) Urine Ketones Trace mg/dL mg/dL (Negative) Ur Blood (Man) 3+ H (Negative) Urine Nitrate Positive H (Negative) Urine
--- NOTE | 2022-10-10 08:57 | WPDURCON ---
Assessment and Plan Assessment and plan (1) Calculus of ureter: Code(s): N20.1 - Calculus of ureter Status: Acute (2) 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: Code(s): N20.1 - Calculus of ureter Status: Acute Plan Left ureteral stone -- plan for OR today for cysto, left RGP, left stent Will need outpatient stone treatment at some point -- will remain admitted to hospitalist post-op due to concern for systemic infection Urology Consult Note HPI Date Seen: 10/10/22 Requesting Physician: Shandra Cee MD Primary Care Provider: Israel Newby MD Consult Narrative Narrative: Kathi Herrera is a 42 year old female. She comes in with intractible left flank pain. CT AP shows left proximal ureteral stone. Here for stent this AM. WBC 22, Cr 1.2 -- Review of Systems Review of Systems: All systems reviewed & are unremarkable except as noted in HPI and below PMFSH Past Medical History Medical History (Updated 10/10/22 @ 08:59 by Gaurav Moreno MD) Anxiety and depression Dental infection HTN (hypertension) Kidney stone 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 Umbilical hernia fixed in 2016 Ventral hernia without obstruction or gangrene Surgical History Surgical History H/O section x4 Hx of tonsillectomy Family History Family History Other Diabetes mellitus Hypertension Social History Social History Smoking status: Current every day smoker Alcohol intake: never Substance use: never Substance use type: does not use Lack of Transportation: No Lack of Food: Never True Current Housing: I Have Housing Concerned About Future Housing: No Difficulty Paying Gas/Electric Bills: No Difficulty Paying for Meds: No Currently Unemployed: No Education: High School Diploma/GED Difficulty w/ Childcare or Family Care: No Gender identity (if verbalized by the patient): Female Spiritual care concerns: No Meds Home Medications and Allergies Home Medications Medication Instructions Recorded Confirmed Type venlafaxine 150 mg 150 mg PO DAILY 04/10/20 10/10/22 History capsule,extended release 24 hr (Effexor XR) tramadol 50 mg tablet 50 mg PO TID 09/08/20 10/10/22 History buspirone 10 mg tablet 10 mg PO DAILY 06/14/21 10/10/22 History irbesartan 150 mg tablet 150 mg PO DAILY 06/14/21 10/10/22 History atogepant 60 mg tablet (Qulipta) 60 mg PO DAILY 10/09/22 10/10/22 History indomethacin 50 mg capsule 50 mg PO DAILY 10/09/22 10/10/22 History omeprazole 20 mg capsule,delayed 20 mg PO DAILY 10/09/22 10/10/22 History release phentermine 37.5 mg tablet 37.5 mg PO DAILY 10/09/22 10/10/22 History rosuvastatin 10 mg tablet (Crestor) 10 mg PO DAILY 10/10/22 10/10/22 History Allergies Allergy/AdvReac Type Severity Reaction Status Date / Time No Known Allergies Allergy Verified 10/09/22 17:53 Vital Signs Vital Signs - 24 hr 10/09/22 18:39 10/09/22 19:18 10/09/22 20:53 Temperature 37.1 C Pulse Rate 132 H 120 H 124 H Respiratory Rate 18 25 H 29 H Blood Pressure 125/85 120/84 106/50 L Pulse Oximetry 99 100 96 Oxygen Delivery Room Air 10/09/22 21:04 10/09/22 22:20 10/09/22 23:05 Temperature 36.5 C Pulse Rate 120 H 125 H 114 H Respiratory Rate 24 H 12 18 Blood Pressure 91/66 L 91/72 L 126/58 L Pulse Oximetry 98 97 97 Oxygen Delivery 10/10/22 02:57 10/10/22 04:26 Temperature 36.9 C Pulse Rate 114 H 114 H Respiratory Rate 18 18 Blood Pressure 108/74 Pulse Oximetry 98 98 Oxygen Delivery Room Air Exam Narrative: No acute distress Nonlabored breathing Results Labs 10/10/22 05:07 10/10/22 05:07 Labs: Short CBC 10/09/22 10/10/22 Range/Units 18:56 05:07 WBC 14.5 H 22.6 H (4.5-1
--- NOTE | 2022-10-10 09:00 | WPDHPUPDATE1 ---
History and Physical Update Update Date/Time: 10/10/22 09:00 History and Physical has been reviewed, including an updated exam of the patient. There are NO changes in the patient's condition. Risks, benefits, and alternatives have been discussed and questions answered. Patient agrees to proceed with procedure.
--- NOTE | 2022-10-10 09:03 | P.PNAN_ITS ---
Anes - Eval Final PreProcedure Day of Procedure 10/10/22 09:03 Patient weight: morbidly obese Heart: tachycardia Lungs: clear to auscultation Airway: Mallampati scale class III Neurological: alert and oriented Last oral intake: >/= 8 hours ASA classification: III Emergent: no Anesthetic plan: proceed Anesthesia type and monitoring: general LMA and standard monitoring Results Review: All pre-operative results and documents have been reviewed as part of the pre- operative evaluation. Informed Consent: The patient's anesthetic plan and its attendant risks and benefits were discussed with the patient/family/POA. Questions were solicited and answers provided to the satisfaction of the patient/family/POA.
--- NOTE | 2022-10-10 09:25 | W.PM.PROC2 ---
Procedure Note - Detailed Date of Procedure 10/10/22 Pre-op Diagnosis Kidney Stone, Pyelonephritis Post-op Diagnosis Same Procedure Performed Cystoscopy, left retrograde pyelogram, left ureteral stent Surgeon Gaurav Moreno MD Anesthesia General Indications 7mm left UPJ + 4mm left proximal ureteral stone with WBC >20, potential UTI, and intractable pain Findings 7mm left UPJ stone; able to place 4.8Fr variable length stent on string Description of Procedure Prior to the operation an informed consent was obtained.? The patient was brought back to the operative suite and a detailed timeout was performed.? General anesthesia was induced without complication.? The patient was positioned in the dorsal lithotomy position with close attention to all pressure points and was prepped and draped in sterile fashion. We began the case using a rigid cystoscope to gain access into the bladder under direct visualization per urethra. Cystoscopy was unremarkable. We turned our attention to the left ureteral orifice and cannulated it using a 5 Turkish open-ended ureteral catheter and sensor wire.? We radiologically confirmed the wire to pass up into the renal pelvis before advancing the ureteral catheter up to get an estimated measurement for our stent size as well as performing a retrograde pyelogram to better delineate the renal pelvis. With our wire in place, we placed a 4.8Fr variable length double-J ureteral stent with no string. We confirmed excellent position fluoroscopically.? The patient's bladder was emptied at the conclusion of the case and the patient tolerated the procedure well. PLAN: -PACU, Floor -Likely needs continued observation to ensure no systemic illness -Will also need outpatient stone treatment when low concern for infection This note was created with the assistance of voice-recognition software and may contain phonetic errors. Estimated Blood Loss 0 Urine Output 650 Complications None Condition Stable Disposition PACU
[2022-10-10] MEDS: LACTATED RINGERS 1,000 ML 30 ML IV CONT ×2 (09:31)
--- NOTE | 2022-10-10 11:30 | PM.IMPN ---
Progress Note: A&P Assessment and Plan (1) Sepsis: Code(s): A41.9 - Sepsis, unspecified organism Status: Acute Assessment and Plan: patient meets SIRS criteria with temperature a 101.7, tachycardia, tachypnea, hypotension leukocytosis source of infection source of infection pyelonephritis and UTI IV hydration given the ED and continued blood cultures ordered however were not drawn prior to antibiotic administration continue ceftriaxone for now urine culture pending await culture results trend white blood cell count tailor antibiotics to culture results (2) 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: Code(s): N20.1 - Calculus of ureter Status: Acute Assessment and Plan: CT shows 7 mm UPJ stone in the left kidney with other renal stones noted trend urine output most likely causing pyelonephritis urology consulted cystoscopy scheduled for today with stent placement (3) Pyelonephritis: Code(s): N12 - Tubulo-interstitial nephritis, not specified as acute or chronic Status: Acute Assessment and Plan: UA does appear infectious with positive nitrates, 4+ bacteria, greater than 100 wbc's, 3+ leukocyte esterase continue ceftriaxone for now await urine cultures trend urine output adjust antibiotics to culture sensitivities (4) HTN (hypertension): Code(s): I10 - Essential (primary) hypertension Status: Acute Assessment and Plan: Resume home meds Continue to monitor Time Spent With Patient Time: 51 minutes Time with patient: Greater than 35 minutes Subjective Date/time seen: 10/10/22 1130 Interval history: 10/10/22 113 Patient is doing ok. She just got back to the floor post cystoscopy. She had a stent placed. She denies any chest pain, shortness of breath, nausea, vomiting, diarrhea, or constipation. She is complaining of pain which she rated an 8/10. She is wanting something to move her bowels. 10/09/22? 22:27 This is a 42-year-old female with past medical history significant for hypertension, GERD, dyslipidemia, nephrolithiasis, depression and anxiety.? Patient presents to the emergency room due to left flank pain, nausea, vomiting.? Rates pain at 10/10 in intensity radiates to the groin area.? Patient has had chills, poor appetite.? Preliminary workup was significant for CT of abdomen and pelvis with left-sided 7 mm stone, urinalysis was significant for numerous WBCs present. Review of Systems Review of Systems: All systems reviewed & are unremarkable except as noted in HPI and below Exam Narrative: General: well-nourished, well-appearing 42-year-old female, laying in bed, comfortable, NARD Neuro: awake, alert and oriented x4, speech clear, no focal neuro deficits noted HEENMT: normocephalic, atraumatic, EOMI, sclerae anicteric, moist oral mucosa Respiratory: Clear to auscultation bilaterally without crackles, rhonchi or wheezes, nonlabored breathing Cardio: regular rate, regular rhythm with S1-S2 Abdomen: nondistended, normoactive bowel sounds, soft, nontender to palpation Extremities: no edema, erythema, or tenderness to palpation, DP pulses 2+ bilaterally Skin: no rashes or lesions, warm and dry Psych: appropriate mood and affect, judgment and insight intact Objective Data Vital Signs Vital Signs: Vital Signs - 24 hr 10/09/22 18:39 10/09/22 19:18 10/09/22 20:53 Temperature 98.8 F Pulse Rate 132 H 120 H 124 H Respiratory Rate 18 25 H 29 H Blood Pressure 125/85 120/84 106/50 L Pulse Oximetry 99 100 96 Oxygen Delivery Room Air 10/09/22 21:04 10/09/22 22:20 10/09/22 23:05 Temperature 97.7 F Pulse Rate 120 H 125 H 114 H Respiratory Rate 24 H 12 18 Blood Pressure 91/66 L 91/72 L 126/58 L Pulse Oximetry 98 97 97 Oxygen Delivery 10/10/22 02:57 10/10/22 04:26 Temperature 98.5 F Pulse Rate 114 H 114 H Respiratory Rate
--- NOTE | 2022-10-10 11:30 | P.PNIM_ITS ---
Progress Note: A&P Assessment and Plan (1) Sepsis: Code(s): A41.9 - Sepsis, unspecified organism Status: Acute Assessment and Plan: * patient meets SIRS criteria with temperature a 101.7, tachycardia, tachypnea, hypotension leukocytosis source of infection * source of infection pyelonephritis and UTI * IV hydration given the ED and continued * blood cultures ordered however were not drawn prior to antibiotic administration * continue ceftriaxone for now * urine culture pending * await culture results * trend white blood cell count * tailor antibiotics to culture results (2) 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: Code(s): N20.1 - Calculus of ureter Status: Acute Assessment and Plan: * CT shows 7 mm UPJ stone in the left kidney with other renal stones noted * trend urine output * most likely causing pyelonephritis * urology consulted * cystoscopy scheduled for today with stent placement (3) Pyelonephritis: Code(s): N12 - Tubulo-interstitial nephritis, not specified as acute or chronic Status: Acute Assessment and Plan: * UA does appear infectious with positive nitrates, 4+ bacteria, greater than 100 wbc's, 3+ leukocyte esterase * continue ceftriaxone for now * await urine cultures * trend urine output * adjust antibiotics to culture sensitivities (4) HTN (hypertension): Code(s): I10 - Essential (primary) hypertension Status: Acute Assessment and Plan: * Resume home meds * Continue to monitor Time Spent With Patient Time: 51 minutes Time with patient: Greater than 35 minutes Subjective Date/time seen: 10/10/22 1130 Interval history: 10/10/22 1130 Patient is doing ok. She just got back to the floor post cystoscopy. She had a stent placed. She denies any chest pain, shortness of breath, nausea, vomiting, diarrhea, or constipation. She is complaining of pain which she rated an 8/10. She is wanting something to move her bowels. 10/09/22? 22:27 This is a 42-year-old female with past medical history significant for hypertension, GERD, dyslipidemia, nephrolithiasis, depression and anxiety.? Patient presents to the emergency room due to left flank pain, nausea, vomiting.? Rates pain at 10/10 in intensity radiates to the groin area.? Patient has had chills, poor appetite.? Preliminary workup was significant for CT of abdomen and pelvis with left-sided 7 mm stone, urinalysis was significant for numerous WBCs present. Review of Systems Review of Systems: All systems reviewed & are unremarkable except as noted in HPI and below Exam Narrative: General: well-nourished, well-appearing 42-year-old female, laying in bed, comfortable, NARD Neuro: awake, alert and oriented x4, speech clear, no focal neuro deficits noted HEENMT: normocephalic, atraumatic, EOMI, sclerae anicteric, moist oral mucosa Respiratory: Clear to auscultation bilaterally without crackles, rhonchi or wheezes, nonlabored breathing Cardio: regular rate, regular rhythm with S1-S2 Abdomen: nondistended, normoactive bowel sounds, soft, nontender to palpation Extremities: no edema, erythema, or tenderness to palpation, DP pulses 2+ bilaterally Skin: no rashes or lesions, warm and dry Psych: appropriate mood and affect, judgment and insight intact Objective Data Vital Signs Vital Signs: Vital Signs - 24 h
[2022-10-10] MEDS: SODIUM CHLORIDE 0.9% IV 1,000 ML 125 ML IV CONT (13:10)
[2022-10-10] MEDS: traMADol HCL (*CRX) 50 MG TABLET PO ×2 (14:11→17:50)
[2022-10-10] MEDS: MICONAZOLE NITRATE 2% VAGINAL CREAM 45 GM TUBE 1 APPFUL VAGINAL (17:51)
[2022-10-11] MEDS: HYDROmorphone HCL INJ (*CRX) 1 MG/ML SYR IV PUSH ×3 (01:46→08:20)
[2022-10-11] MEDS: SODIUM CHLORIDE 0.9% IV 1,000 ML 125 ML IV CONT ×2 (01:46→10:06)
[2022-10-11] MEDS: traMADol HCL (*CRX) 50 MG TABLET PO ×4 (04:12→17:08)
[2022-10-11 05:31] VITALS: BP 128/79; PULSE 108; RESP 18; TEMP 37.1; O2SAT 100
[2022-10-11 05:52] LABS: Basophils Percent Auto 0.2 % (0.2-1.2); Eosinophils Absolute Auto 0.1 K/mm3 (0-0.3); Eosinophils Percent Auto 0.3 % (0-4.4); Hematocrit 29.7 % (37.0-47.0); Hemoglobin 9.5 g/dL (12.0-15.0); Immature Granulocyte Absolute 0.19 K/mm3 (0.00-0.031); Immature Granulocyte Percent A 1.1 % (0-0.5); Lymphocytes Absolute Auto 1.62 K/mm3 (0.9-3.2); Lymphocytes Percent Auto 9.3 % (18.3-44.2); Mean Corpuscular Hemoglobin 30.5 pg (26-34); Mean Corpuscular Volume 95.5 fl (80-100); Mean Platelet Volume 11.3 fl (7.4-10.4); Monocytes Absolute Auto 1.7 K/mm3 (0.1-0.6); Monocytes Percent Auto 9.6 % (2.6-8.5); Neutrophils Absolute Auto 13.9 K/mm3 (1.3-6.7); Neutrophils Percent Auto 79.5 % (45.5-73.1); Platelet Count Result 205 k/mm3 (150-375); Red Blood Count 3.11 M/mm3 (4.2-5.4); Red Cell Distribution Width 13.5 % (11.5-14.5); White Blood Count 17.5 K/mm3 (4.5-10.0)
[2022-10-11 06:06] LABS: Alanine Aminotransferase 26 U/L (6-35); Albumin Level 3.4 g/dL (3.5-5.1); Alkaline Phosphatase 102 U/L (38-126); Anion Gap 5 mmol/L (8-16); Aspartate Amino Transferase 25 U/L (14-36); Bilirubin,Total 0.3 mg/dL (0.2-1.3); Blood Urea Nitrogen 15 mg/dL (7-17); Calcium 8.9 mg/dL (8.4-10.2); Carbon Dioxide 27 mmol/L (22-30); Chloride 106 mmol/L (98-107); Estimated CRCL calculation 104 ml/min; Estimated Glomerular Filt Rate > 60; Glucose 114 mg/dL (65-110); Magnesium 1.9 mg/dL (1.6-2.3); Sodium 138 mmol/L (137-145)
[2022-10-11 08:00] VITALS: BP 124/78; PULSE 103; RESP 18; TEMP 36.5; O2SAT 100
[2022-10-11] MEDS: VENLAFAXINE HCL XR 75 MG CAP.ER.24H 150 MG PO (08:16)
[2022-10-11] MEDS: IRBESARTAN 150 MG TABLET PO (08:16)
[2022-10-11] MEDS: PANTOPRAZOLE 40 MG TABLET PO ×3 (08:16→21:35)
[2022-10-11] MEDS: ROSUVASTATIN 10 MG TABLET PO (08:16)
[2022-10-11] MEDS: busPIRone HCL 10 MG TABLET PO (08:16)
--- NOTE | 2022-10-11 08:38 | WPDUROPN2 ---
Progress Note: A&P Assessment and Plan (1) Calculus of ureter: Code(s): N20.1 - Calculus of ureter Status: Acute Assessment and Plan: Stone is visible on cryptologist radiograph. She can be discharged home with her stent. We will arrange outpatient lithotripsy. Will add oxybutynin for stent discomfort (2) Pyelonephritis: Code(s): N12 - Tubulo-interstitial nephritis, not specified as acute or chronic Status: Acute Assessment and Plan: Cultures pending. Home on 10-14 days of culture specific antibiotic Subjective Subjective Date/Time Seen: 10/11/22 08:38 Review of Systems Review of Systems: She finds her stent uncomfortable with flank pain and bladder cramping. Cultures are still pending Exam Narrative: She states she is uncomfortable for her stent She is afebrile She is sitting up in bed. She is nontoxic appearing Objective Data Vital Signs Vital Signs: Vital Signs - 24 hr 10/10/22 09:31 10/10/22 09:45 10/10/22 10:00 Temperature 99.8 F H Pulse Rate 124 H 124 H 124 H Respiratory Rate 33 H 26 H 25 H Blood Pressure 86/58 L 101/71 107/73 Pulse Oximetry 92 96 94 Oxygen Delivery Nasal Cannula Nasal Cannula Nasal Cannula Oxygen Flow Rate 2 2 2 10/10/22 10:13 10/10/22 12:00 10/10/22 21:51 Temperature 97.1 F L 97.7 F Pulse Rate 124 H 112 H 110 H Respiratory Rate 26 H 16 18 Blood Pressure 101/75 92/61 L 119/79 Pulse Oximetry 99 90 98 Oxygen Delivery Nasal Cannula Oxygen Flow Rate 2 10/10/22 20:00 10/11/22 05:31 Temperature 98.7 F Pulse Rate 110 H 108 H Respiratory Rate 18 18 Blood Pressure 128/79 Pulse Oximetry 98 100 Oxygen Delivery Room Air Oxygen Flow Rate Intake/Output Intake/Output: Intake & Output 10/08/22 10/09/22 10/10/22 10/11/22 23:59 23:59 23:59 23:59 Intake Total 2770 250 Output Total 2675 600 Balance 95 -350 Meds/Results Medications: Active Medications Generic Name Dose Route Start Last Admin Trade Name Freq PRN Reason Stop Dose Admin Acetaminophen 1,000 mg 10/10/22 00:00 Acetaminophen 500 Mg Tablet PO Q6H PRN Mild Pain (1-3) or Fever Buspirone HCl 10 mg 10/11/22 09:00 10/11/22 08:16 Buspirone Hcl 10 Mg Tablet PO 10 mg DAILY ANIA Administration Fentanyl Citrate 25 mcg 10/10/22 09:04 Fentanyl Citrate Inj (*Crx) 100 Mcg/2 Ml Vial IV PUSH Q2M PRN Pain Hydromorphone HCl 1 mg 10/10/22 00:00 10/11/22 08:20 Hydromorphone Hcl Inj (*Crx) 1 Mg/Ml Syr IV PUSH 1 mg Q3H PRN Administration Pain Rated 7-10 Ceftriaxone Sodium 1 gm in 50 mls @ 100 mls/hr 10/10/22 22:00 10/10/22 21:33 Rocephin 1 Gm/Ns 50 Ml IVPB 100 mls/hr Q24H ANIA Administration Sodium Chloride 1,000 mls @ 125 mls/hr 10/09/22 21:50 10/11/22 01:46 Normal Saline Iv IV CONT 125 mls/hr .Q8H ANIA Administration Irbesartan 150 mg 10/11/22 09:00 10/11/22 08:16 Irbesartan 150 Mg Tablet PO 150 mg DAILY ANIA Administration Miconazole Nitrate 1 appful 10/10/22 21:00 10/10/22 17:51 Miconazole Nitrate 2% Vaginal Cream 45 Gm Tube VAGINAL 10/16/22 21:01 1 appful HS ANIA Administration Miscellaneous Information 1 each 10/10/22 00:01 10/10/22 13:24 Qulipta Is Nonformulary. Can Patient Use Home Supply? Or Hold While Hospitalized? XX 11/09/22 00:00 Not Given [facility] Non-Formulary Medication 60 mg 10/11/22 09:00 Atogepant [Qulipta] PO 11/10/22 08:59 DAILY ANIA Ondansetron HCl 4 mg 10/09/22 21:49 10/10/22 08:00 Ondansetron Inj 4 Mg/2 Ml Vial IV PUSH 4 mg Q4H PRN Administration Nausea Pantoprazole Sodium 40 mg 10/11/22 09:00 10/11/22 08:16 Pantoprazole 40 Mg Tablet PO 40 mg QAM ANIA Administration Rosuvastatin Calcium 10 mg 10/11/22 09:00 10/11/22 08:16 Rosuvastatin 10 Mg Tablet PO 10 mg DAILY ANIA Administration Tramadol HCl 50 mg 10/10/22 00:00 10/11/22 04:12 Tramadol Hcl (*Crx) 50 Mg Tablet PO 50 mg Q
[2022-10-11] MEDS: oxyBUTYnin CHLORIDE 5 MG TABLET PO ×3 (10:07→17:08)
[2022-10-11] MEDS: diphenhydrAMINE HCl INJ 50 MG/ML VIAL 25 MG IV PUSH (11:30)
[2022-10-11] MEDS: FAMOTIDINE 20 MG/2 ML VIAL IV PUSH ×2 (11:31→22:54)
--- NOTE | 2022-10-11 11:35 | P.PNAN_ITS ---
Anes - Prog Note Post-Op Date/Time: 10/11/22 11:35 Cardiovascular status: normal Respiratory status: normal Airway patency: baseline Mental status: baseline Post-Op hydration status: normal Vital Signs: Last Vital Signs Temp 97.7 F 10/11/22 08:00 Pulse 103 H 10/11/22 08:00 Resp 18 10/11/22 08:00 BP 124/78 10/11/22 08:00 Pulse Ox 100 10/11/22 08:00 O2 Del Method Room Air 10/11/22 08:00 O2 Flow Rate 2 10/10/22 10:13 Pain Score (VAS): 0/10 I/O: Intake & Output 10/10/22 10/11/22 10/11/22 23:59 07:59 15:59 Intake Total 8869 609 9530 Output Total 1375 600 Balance -255 -350 1240 Laboratory Tests 10/11/22 05:24 10/11/22 05:24 10/11/22 10/11/22 05:24 05:24 WBC 17.5 H RBC 3.11 L Hgb 9.5 L Hct 29.7 L MCV 95.5 MCH 30.5 MCHC 32.0 RDW 13.5 Plt Count 205 MPV 11.3 H Immature Gran % (Auto) 1.1 H Neut % (Auto) 79.5 H Lymph % (Auto) 9.3 L [place] % (Auto) 9.6 H Eos % (Auto) 0.3 Baso % (Auto) 0.2 Lymph # (Auto) 1.62 [place] # (Auto) 1.7 H Eos # (Auto) 0.1 Baso # (Auto) 0.0 Abs Immat Gran (auto) 0.19 H Absolute Neuts (auto) 13.9 H Absolute Nucleated RBC 0.0 Nucleated RBC % 0.0 Sodium 138 Potassium 4.0 Chloride 106 Carbon Dioxide 27 Anion Gap 5 L BUN 15 Creatinine 0.70 Estim Creat Clear Calc 104 Estimated GFR > 60 Glucose 114 H Calcium 8.9 Magnesium 1.9 Total Bilirubin 0.3 AST 25 ALT 26 Alkaline Phosphatase 102 Total Protein 6.0 L Albumin 3.4 L Microbiology 10/09/22 20:51 Urine Clean Catch Urine Culture - Preliminary Escherichia Coli Enterococcus species Post-procedural complaints: none Patient Feedback: Patient satisfied with anesthetic care.
--- NOTE | 2022-10-11 12:45 | PM.IMPN ---
Progress Note: A&P Assessment and Plan (1) Sepsis: Code(s): A41.9 - Sepsis, unspecified organism Status: Acute Assessment and Plan: patient meets SIRS criteria with temperature a 101.7, tachycardia, tachypnea, hypotension leukocytosis source of infection source of infection pyelonephritis and UTI IV hydration given the ED and continued blood cultures ordered however were not drawn prior to antibiotic administration continue ceftriaxone and add vancomycin urine culture grew enterococcus and Ecoli await culture results trend white blood cell count tailor antibiotics to culture results (2) 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: Code(s): N20.1 - Calculus of ureter Status: Acute Assessment and Plan: CT shows 7 mm UPJ stone in the left kidney with other renal stones noted trend urine output most likely causing pyelonephritis urology consulted cystoscopy scheduled for today with stent placement (3) Pyelonephritis: Code(s): N12 - Tubulo-interstitial nephritis, not specified as acute or chronic Status: Acute Assessment and Plan: UA does appear infectious with positive nitrates, 4+ bacteria, greater than 100 wbc's, 3+ leukocyte esterase continue ceftriaxone day 3, add vancomycin Urine culture grew enterococcus, and Ecoli trend urine output adjust antibiotics to culture sensitivities (4) HTN (hypertension): Code(s): I10 - Essential (primary) hypertension Status: Acute Assessment and Plan: BP is 124/78 Resume home meds Continue to monitor Adjust medications as indicated Time Spent With Patient Time: 48 minutes Time with patient: Greater than 35 minutes Subjective Date/time seen: 10/11/22 1245 Interval history: 10/11/22 1245 Patient was lying in bed. Patient stated that she did not sleep well as she had severe back pain. She is also having severe heartburn and did state that the famotidine and Protonix is helping. She did state that she is having some pain in the left flank area. She Also stated that she was itching after she gets the dose of Dilaudid. Currently she is wanting to go home tomorrow. She is also asking if she could get something for sleep. Patient currently denies any chest pain, shortness of breath, diarrhea, nausea, vomiting. She is having constipation like this has been ordered. 10/10/22 1130 Patient is doing ok. She just got back to the floor post cystoscopy. She had a stent placed. She denies any chest pain, shortness of breath, nausea, vomiting, diarrhea, or constipation. She is complaining of pain which she rated an 8/10. She is wanting something to move her bowels. 10/09/22? 22:27 This is a 42-year-old female with past medical history significant for hypertension, GERD, dyslipidemia, nephrolithiasis, depression and anxiety.? Patient presents to the emergency room due to left flank pain, nausea, vomiting.? Rates pain at 10/10 in intensity radiates to the groin area.? Patient has had chills, poor appetite.? Preliminary workup was significant for CT of abdomen and pelvis with left-sided 7 mm stone, urinalysis was significant for numerous WBCs present. Review of Systems Review of Systems: All systems reviewed & are unremarkable except as noted in HPI and below Exam Narrative: General: well-nourished, well-appearing 42-year-old female, laying in bed, comfortable, NARD Neuro: awake, alert and oriented x4, speech clear, no focal neuro deficits noted HEENMT: normocephalic, atraumatic, EOMI, sclerae anicteric, moist oral mucosa Respiratory: Clear to auscultation bilaterally without crackles, rhonchi or wheezes, nonlabored breathing Cardio: regular rate, regular rhythm with S1-S2 Abdomen: nondistended, normoactive bowel sounds, soft, nontender to palpation Extremities: no edema, erythema, or tenderness to palpation, D
[2022-10-11] MEDS: HYDROcodone/acetaminophen (*CRX) 5-325 MG TABLET 1 TAB PO ×3 (13:05→21:35)
--- NOTE | 2022-10-11 13:17 | PCCCNOTE ---
On 10/11/22, the student, [Tereza Mitchell ], provided care and completed [facility] documentation on this patient. I have reviewed the student's documentation and agree with the findings.
[2022-10-11 16:00] VITALS: BP 100/59; PULSE 98; RESP 20; TEMP 36.4; O2SAT 100
[2022-10-11] MEDS: LACTULOSE 20 GM/30 ML UDC PO (17:25)
[2022-10-11 20:04] VITALS: BP 139/82; PULSE 81; RESP 20; TEMP 36.2; O2SAT 98
[2022-10-11] MEDS: MICONAZOLE NITRATE 2% VAGINAL CREAM 45 GM TUBE 1 APPFUL VAGINAL (21:38)
[2022-10-11] MEDS: traZODone HCL 50 MG TABLET PO (22:53)
[2022-10-12] VITALS: BP 106/72; PULSE 86; RESP 20; TEMP 36.4; O2SAT 97
[2022-10-12] MEDS: HYDROcodone/acetaminophen (*CRX) 5-325 MG TABLET 1 TAB PO ×3 (01:52→21:08)
[2022-10-12 06:03] LABS: Basophils Percent Auto 0.3 % (0.2-1.2); Eosinophils Absolute Auto 0.1 K/mm3 (0-0.3); Eosinophils Percent Auto 0.7 % (0-4.4); Hematocrit 29.9 % (37.0-47.0); Hemoglobin 9.4 g/dL (12.0-15.0); Immature Granulocyte Absolute 0.04 K/mm3 (0.00-0.031); Immature Granulocyte Percent A 0.4 % (0-0.5); Lymphocytes Absolute Auto 2.28 K/mm3 (0.9-3.2); Lymphocytes Percent Auto 23.4 % (18.3-44.2); Mean Corpuscular HGB Conc 31.4 g/dl (32-36); Mean Corpuscular Volume 98.7 fl (80-100); Mean Platelet Volume 11.6 fl (7.4-10.4); Monocytes Absolute Auto 0.9 K/mm3 (0.1-0.6); Monocytes Percent Auto 8.8 % (2.6-8.5); Neutrophils Absolute Auto 6.5 K/mm3 (1.3-6.7); Neutrophils Percent Auto 66.4 % (45.5-73.1); Platelet Count Result 191 k/mm3 (150-375); Red Blood Count 3.03 M/mm3 (4.2-5.4); Red Cell Distribution Width 13.6 % (11.5-14.5); White Blood Count 9.7 K/mm3 (4.5-10.0)
[2022-10-12 06:13] LABS: Alanine Aminotransferase 63 U/L (6-35); Albumin Level 3.3 g/dL (3.5-5.1); Alkaline Phosphatase 106 U/L (38-126); Anion Gap 6 mmol/L (8-16); Aspartate Amino Transferase 75 U/L (14-36); Bilirubin,Total 0.3 mg/dL (0.2-1.3); Blood Urea Nitrogen 13 mg/dL (7-17); Calcium 8.6 mg/dL (8.4-10.2); Carbon Dioxide 27 mmol/L (22-30); Chloride 105 mmol/L (98-107); Estimated CRCL calculation 104 ml/min; Estimated Glomerular Filt Rate > 60; Glucose 125 mg/dL (65-110); Magnesium 1.7 mg/dL (1.6-2.3); Potassium 3.8 mmol/L (3.4-5.0); Sodium 138 mmol/L (137-145)
[2022-10-12 07:46] VITALS: O2SAT 97
[2022-10-12] MEDS: IRBESARTAN 150 MG TABLET PO (08:35)
[2022-10-12] MEDS: busPIRone HCL 10 MG TABLET PO (08:35)
[2022-10-12] MEDS: oxyBUTYnin CHLORIDE 5 MG TABLET PO ×3 (08:35→16:37)
[2022-10-12] MEDS: LACTULOSE 20 GM/30 ML UDC PO (08:35)
[2022-10-12] MEDS: VENLAFAXINE HCL XR 75 MG CAP.ER.24H 150 MG PO (08:36)
[2022-10-12] MEDS: PANTOPRAZOLE 40 MG TABLET PO ×2 (08:36→21:09)
[2022-10-12] MEDS: ROSUVASTATIN 10 MG TABLET PO (08:36)
[2022-10-12] MEDS: traMADol HCL (*CRX) 50 MG TABLET PO ×3 (08:36→16:37)
--- NOTE | 2022-10-12 10:15 | PM.IMPN ---
Progress Note: A&P Assessment and Plan (1) Sepsis: Code(s): A41.9 - Sepsis, unspecified organism Status: Acute Assessment and Plan: patient meets SIRS criteria with temperature a 101.7, tachycardia, tachypnea, hypotension leukocytosis source of infection source of infection pyelonephritis and UTI IV hydration given the ED and continued blood cultures ordered however were not drawn prior to antibiotic administration continue ceftriaxone and add vancomycin urine culture grew enterococcus and Ecoli await culture results trend white blood cell count tailor antibiotics to culture results (2) 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: Code(s): N20.1 - Calculus of ureter Status: Acute Assessment and Plan: CT shows 7 mm UPJ stone in the left kidney with other renal stones noted trend urine output most likely causing pyelonephritis urology consulted cystoscopy scheduled for today with stent placement (3) Pyelonephritis: Code(s): N12 - Tubulo-interstitial nephritis, not specified as acute or chronic Status: Acute Assessment and Plan: UA does appear infectious with positive nitrates, 4+ bacteria, greater than 100 wbc's, 3+ leukocyte esterase continue ceftriaxone day 4, add vancomycin 2 Urine culture grew enterococcus, and Ecoli trend urine output adjust antibiotics to culture sensitivities (4) HTN (hypertension): Code(s): I10 - Essential (primary) hypertension Status: Acute Assessment and Plan: BP is 106/72 Resume home meds Continue to monitor Adjust medications as indicated (5) Constipation: Code(s): K59.00 - Constipation, unspecified Status: Acute Assessment and Plan: Lactulose suppository, and miralax all ordered Currently stable Continue to monitor Time Spent With Patient Time: 48 minutes Time with patient: Greater than 35 minutes Subjective Date/time seen: 10/12/22 1015 Interval history: 10/12/22 1015 Patient is doing okay today. She stated the pain is better however she is still very constipated. She denies any chest pain, shortness a breath, diarrhea, nausea, vomiting, weakness or fatigue. Patient should be stable for discharge to the morning of sensitivities come back for the Enterococcus. 10/11/22 1245 Patient was lying in bed. Patient stated that she did not sleep well as she had severe back pain. She is also having severe heartburn and did state that the famotidine and Protonix is helping. She did state that she is having some pain in the left flank area. She Also stated that she was itching after she gets the dose of Dilaudid. Currently she is wanting to go home tomorrow. She is also asking if she could get something for sleep. Patient currently denies any chest pain, shortness of breath, diarrhea, nausea, vomiting. She is having constipation like this has been ordered. 10/10/22 1130 Patient is doing ok. She just got back to the floor post cystoscopy. She had a stent placed. She denies any chest pain, shortness of breath, nausea, vomiting, diarrhea, or constipation. She is complaining of pain which she rated an 8/10. She is wanting something to move her bowels. 10/09/22? 22:27 This is a 42-year-old female with past medical history significant for hypertension, GERD, dyslipidemia, nephrolithiasis, depression and anxiety.? Patient presents to the emergency room due to left flank pain, nausea, vomiting.? Rates pain at 10/10 in intensity radiates to the groin area.? Patient has had chills, poor appetite.? Preliminary workup was significant for CT of abdomen and pelvis with left-sided 7 mm stone, urinalysis was significant for numerous WBCs present. Review of Systems Review of Systems: All systems reviewed & are unremarkable except as noted in HPI and below Exam Narrative: General:
--- NOTE | 2022-10-12 10:15 | P.PNIM_ITS ---
Progress Note: A&P Assessment and Plan (1) Sepsis: Code(s): A41.9 - Sepsis, unspecified organism Status: Acute Assessment and Plan: * patient meets SIRS criteria with temperature a 101.7, tachycardia, tachypnea, hypotension leukocytosis source of infection * source of infection pyelonephritis and UTI * IV hydration given the ED and continued * blood cultures ordered however were not drawn prior to antibiotic administration * continue ceftriaxone and add vancomycin * urine culture grew enterococcus and Ecoli * await culture results * trend white blood cell count * tailor antibiotics to culture results (2) 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: Code(s): N20.1 - Calculus of ureter Status: Acute Assessment and Plan: * CT shows 7 mm UPJ stone in the left kidney with other renal stones noted * trend urine output * most likely causing pyelonephritis * urology consulted * cystoscopy scheduled for today with stent placement (3) Pyelonephritis: Code(s): N12 - Tubulo-interstitial nephritis, not specified as acute or chronic Status: Acute Assessment and Plan: * UA does appear infectious with positive nitrates, 4+ bacteria, greater than 100 wbc's, 3+ leukocyte esterase * continue ceftriaxone day 4, add vancomycin 2 * Urine culture grew enterococcus, and Ecoli * trend urine output * adjust antibiotics to culture sensitivities (4) HTN (hypertension): Code(s): I10 - Essential (primary) hypertension Status: Acute Assessment and Plan: * BP is 106/72 * Resume home meds * Continue to monitor * Adjust medications as indicated (5) Constipation: Code(s): K59.00 - Constipation, unspecified Status: Acute Assessment and Plan: * Lactulose suppository, and miralax all ordered * Currently stable * Continue to monitor Time Spent With Patient Time: 48 minutes Time with patient: Greater than 35 minutes Subjective Date/time seen: 10/12/22 1015 Interval history: 10/12/22 1015 Patient is doing okay today. She stated the pain is better however she is still very constipated. She denies any chest pain, shortness a breath, diarrhea, nausea, vomiting, weakness or fatigue. Patient should be stable for discharge to the morning of sensitivities come back for the Enterococcus. 10/11/22 1245 Patient was lying in bed. Patient stated that she did not sleep well as she had severe back pain. She is also having severe heartburn and did state that the famotidine and Protonix is helping. She did state that she is having some pain in the left flank area. She Also stated that she was itching after she gets the dose of Dilaudid. Currently she is wanting to go home tomorrow. She is also asking if she could get something for sleep. Patient currently denies any chest pain, shortness of breath, diarrhea, nausea, vomiting. She is having constipation like this has been ordered. 10/10/22 1130 Patient is doing ok. She just got back to the floor post cystoscopy. She had a stent placed. She denies any chest pain, shortness of breath, nausea, vomiting, diarrhea, or constipation. She is complaining of pain which she rated an 8/10. She is wanting something to move her bowels. 10/09/22? 22:27 This is a 42-year-old female with past medical history significant for hypertension, GERD, dyslipidemia, ne
[2022-10-12] MEDS: BISACODYL 10 MG SUPPOSITORY RECTAL (12:44)
[2022-10-12 14:00] VITALS: BP 103/71; PULSE 100; RESP 18; TEMP 36.4; O2SAT 99
[2022-10-12 20:00] VITALS: PULSE 109; RESP 20; O2SAT 100
[2022-10-12 20:07] VITALS: BP 115/78; PULSE 109; RESP 20; TEMP 36.7; O2SAT 100
[2022-10-12] MEDS: traZODone HCL 50 MG TABLET PO (21:09)
[2022-10-12] MEDS: MICONAZOLE NITRATE 2% VAGINAL CREAM 45 GM TUBE 1 APPFUL VAGINAL (21:09)
[2022-10-13 01:57] LABS: Vancomycin Trough 13.1 ug/mL (10.0-20.0)
[2022-10-13] MEDS: HYDROcodone/acetaminophen (*CRX) 5-325 MG TABLET 1 TAB PO (02:54)
[2022-10-13 03:19] VITALS: BP 119/83; PULSE 104; RESP 20; TEMP 37.1; O2SAT 99
[2022-10-13 05:41] LABS: Estimated CRCL calculation 104 ml/min; Estimated Glomerular Filt Rate > 60
--- NOTE | 2022-10-13 06:45 | PM.DS ---
DS: Admitting Diagnosis Discharge Date 10/13/22 0645 Admitting Diagnosis Pyelonephritis, sepsis, UTI, renal calculi DS: Discharge Diagnosis Discharge Diagnosis (1) Sepsis: Code(s): A41.9 - Sepsis, unspecified organism Status: Acute Assessment and Plan: patient meets SIRS criteria with temperature a 101.7, tachycardia, tachypnea, hypotension leukocytosis source of infection source of infection pyelonephritis and UTI IV hydration given the ED and continued blood cultures ordered however were not drawn prior to antibiotic administration continue ceftriaxone and add vancomycin urine culture grew enterococcus and Ecoli susceptibilities Augmentin, cefdinir trend white blood cell count tailor antibiotics to culture results (2) 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: Code(s): N20.1 - Calculus of ureter Status: Acute Assessment and Plan: CT shows 7 mm UPJ stone in the left kidney with other renal stones noted trend urine output most likely causing pyelonephritis urology consulted cystoscopy scheduled for today with stent placement (3) Pyelonephritis: Code(s): N12 - Tubulo-interstitial nephritis, not specified as acute or chronic Status: Acute Assessment and Plan: UA does appear infectious with positive nitrates, 4+ bacteria, greater than 100 wbc's, 3+ leukocyte esterase continue ceftriaxone day 4, add vancomycin 2 Changed to Augmentin and cefdinir Urine culture grew enterococcus, and Ecoli trend urine output adjust antibiotics to culture sensitivities (4) HTN (hypertension): Code(s): I10 - Essential (primary) hypertension Status: Acute Assessment and Plan: BP is 119/83 Resume home meds Continue to monitor Adjust medications as indicated DS: Summary Hospital Course Hospital Course: patient is a 42-year-old female with a past medical history of hypertension GERD, dyslipidemia, nephrolithiasis, depression, anxiety, obesity presented to the ED with complaints of left flank pain along with nausea and vomiting. Upon arrival CT of the abdomen pelvis was performed and showed a 7 mm stone in the UPJ junction. Urology was consulted and patient was taken the OR for stent placement. UA did present with infectious appearance and did grow E. coli and Enterococcus. Patient was started on ceftriaxone initially until cultures grew Enterococcus and patient was then placed on vancomycin as well. Antibiotics were changed to Augmentin and cefdinir. Patient has had some issues with pain and has had pain medicines that have been tolerated. Patient has been able to tolerate food. Patient did have some problems her pain medicine is a was causing her to have some itching medications were given to relieve itching and pain medicines were adjusted. Upon arrival to the ED the patient did meet sepsis criteria with a temperature greater than 100.1, tachycardia, tachypnea, [place] [address] and source of infection. Blood cultures were obtained and show no growth to date. Patient denies any current chest pain, shortness a breath, nausea, vomiting, diarrhea, headache. Patient did have some issues with constipation and was given stool softeners and was able to have a bowel movement. Currently labs and vital signs remained stable patient is stable for discharge at this time. Status at Discharge Functional status at discharge: independent ambulation Overall status at discharge: patient is progressing back to baseline Time Spent with Patient Time attestation: Total time spent providing and/or coordinating discharge services: 45 minutes Time spent: Greater than 30 minutes Specific discharge activities: Diagnostic testing, chart review, developing a treatment plan, education, care coordination documentation, physical exam, result review Exam Narrative: General
--- NOTE | 2022-10-13 06:45 | P.DS_ITS ---
DS: Admitting Diagnosis Discharge Date 10/13/22 0645 Admitting Diagnosis Pyelonephritis, sepsis, UTI, renal calculi DS: Discharge Diagnosis Discharge Diagnosis (1) Sepsis: Code(s): A41.9 - Sepsis, unspecified organism Status: Acute Assessment and Plan: * patient meets SIRS criteria with temperature a 101.7, tachycardia, tachypnea, hypotension leukocytosis source of infection * source of infection pyelonephritis and UTI * IV hydration given the ED and continued * blood cultures ordered however were not drawn prior to antibiotic administration * continue ceftriaxone and add vancomycin * urine culture grew enterococcus and Ecoli * susceptibilities Augmentin, cefdinir * trend white blood cell count * tailor antibiotics to culture results (2) 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: Code(s): N20.1 - Calculus of ureter Status: Acute Assessment and Plan: * CT shows 7 mm UPJ stone in the left kidney with other renal stones noted * trend urine output * most likely causing pyelonephritis * urology consulted * cystoscopy scheduled for today with stent placement (3) Pyelonephritis: Code(s): N12 - Tubulo-interstitial nephritis, not specified as acute or chronic Status: Acute Assessment and Plan: * UA does appear infectious with positive nitrates, 4+ bacteria, greater than 100 wbc's, 3+ leukocyte esterase * continue ceftriaxone day 4, add vancomycin 2 * Changed to Augmentin and cefdinir * Urine culture grew enterococcus, and Ecoli * trend urine output * adjust antibiotics to culture sensitivities (4) HTN (hypertension): Code(s): I10 - Essential (primary) hypertension Status: Acute Assessment and Plan: * BP is 119/83 * Resume home meds * Continue to monitor * Adjust medications as indicated DS: Summary Hospital Course Hospital Course: patient is a 42-year-old female with a past medical history of hypertension GERD, dyslipidemia, nephrolithiasis, depression, anxiety, obesity presented to the ED with complaints of left flank pain along with nausea and vomiting. Upon arrival CT of the abdomen pelvis was performed and showed a 7 mm stone in the UPJ junction. Urology was consulted and patient was taken the OR for stent placement. UA did present with infectious appearance and did grow E. coli and Enterococcus. Patient was started on ceftriaxone initially until cultures grew Enterococcus and patient was then placed on vancomycin as well. Antibiotics were changed to Augmentin and cefdinir. Patient has had some issues with pain and has had pain medicines that have been tolerated. Patient has been able to tolerate food. Patient did have some problems her pain medicine is a was causing her to have some itching medications were given to relieve itching and pain medicines were adjusted. Upon arrival to the ED the patient did meet sepsis criteria with a temperature greater than 100.1, tachycardia, tachypnea, [place] [address] and source of infection. Blood cultures were obtained and show no growth to date. Patient denies any current chest pain, shortness a breath, nausea, vomiting, diarrhea, headache. Patient did have some issues with constipation and was given stool softeners and was able to have a bowel movement. Currently labs and vital signs remained stable patient is stable for discharge at this time. Status at Discharge Functional status at discharge: independent a
[2022-10-13] MEDS: AMOXICILLIN/CLAVULANATE K 875-125 MG TAB 1 TABLET PO (08:33)
[2022-10-13] MEDS: IRBESARTAN 150 MG TABLET PO (08:33)
[2022-10-13] MEDS: CEFDINIR 300 MG CAPSULE PO (08:33)
[2022-10-13] MEDS: busPIRone HCL 10 MG TABLET PO (08:33)
[2022-10-13] MEDS: PANTOPRAZOLE 40 MG TABLET PO (08:34)
[2022-10-13] MEDS: oxyBUTYnin CHLORIDE 5 MG TABLET PO (08:34)
[2022-10-13] MEDS: ROSUVASTATIN 10 MG TABLET PO (08:35)
[2022-10-13] MEDS: VENLAFAXINE HCL XR 75 MG CAP.ER.24H 150 MG PO (08:35)
[2022-10-13] MEDS: traMADol HCL (*CRX) 50 MG TABLET PO (08:36)
[2022-10-13 08:49] VITALS: O2SAT 98
== END 2022-10-13 09:10 | disposition home or self-care (01) | DRG 659 ==
LOC: ANHED 19:38 → ANH2MED 22:21
PROVIDERS: Urology; Admitting Provider Internal Medicine; Emergency Provider Emergency Medicine; PCP Emergency Medicine; Visit Provider Nurse Practitioner
PROC: 0T778DZ Dilation of Left Ureter with Intraluminal Device, Via Natural or Artificial Opening Endoscopic (ICD-10-PCS; CPT 52352; principal; 2022-10-10 08:45)
DX: N20.1 Calculus of ureter (principal); A41.9 Sepsis, unspecified organism; N39.0 Urinary tract infection, site not specified; Z68.41 Body mass index [BMI] 40.0-44.9, adult; B95.2 Enterococcus as the cause of diseases classified elsewhere; B96.20 Unspecified Escherichia coli [E. coli] as the cause of diseases classified elsewhere; E78.5 Hyperlipidemia, unspecified; E66.9 Obesity, unspecified; F41.9 Anxiety disorder, unspecified; F32.A Depression, unspecified; F17.210 Nicotine dependence, cigarettes, uncomplicated; I10 Essential (primary) hypertension; K21.9 Gastro-esophageal reflux disease without esophagitis; K59.00 Constipation, unspecified; Z87.442 Personal history of urinary calculi
CPT/HCPCS: 36415; 71275; 74174; 74420; 80053; 80202; 81001; 81025; 82565; 83690; 83735; 85025; 87040; 87077; 87086; 87147; 87181; 87186; 93005; 96372; 96375; 99285; A9270; C1758; C1769; C2617; G0378; G0379; J0696; J1100; J1170; J1200; J2060; J2405; J2704; J3010; J3370; J7030; J7120; Q9967

== ENCOUNTER 2022-12-08 00:57 | Day surgery (SDC) | payer BC, OTHER, SELFPAY ==
[2022-12-03 15:17] VITALS: BMI 40.6
--- NOTE | 2022-12-08 09:05 | WPDANESEPPF ---
Anes - Initial Pre Proc Eval Procedure: Operation Date: 12/08/22 14:00 Proposed Procedures p Esophagogastroduodenoscopy - Rod Carmona MD Date/Time: 12/08/22 09:05 Surgeon: Rod Carmona MD Pre Op Diagnosis: Esophagitis Patient Data Age: 42 Gender: F Height: 1.6 m Weight: 104 kg Allergies Allergy/AdvReac Type Severity Reaction Status Date / Time No Known Allergies Allergy Verified 12/03/22 15:18 Home Medications Medication Instructions Recorded Confirmed Type venlafaxine 150 mg 150 mg PO DAILY 04/10/20 12/03/22 History capsule,extended release 24 hr (Effexor XR) tramadol 50 mg tablet 50 mg PO BID 09/08/20 12/03/22 History buspirone 10 mg tablet 10 mg PO BID 06/14/21 12/03/22 History irbesartan 150 mg tablet 150 mg PO DAILY 06/14/21 12/03/22 History atogepant 60 mg tablet (Qulipta) 60 mg PO DAILY 10/09/22 12/03/22 History phentermine 37.5 mg tablet 37.5 mg PO DAILY 10/09/22 12/03/22 History rosuvastatin 10 mg tablet (Crestor) 10 mg PO DAILY 10/10/22 12/03/22 History dulaglutide 0.75 mg/0.5 mL 0.75 mg subcut WEEKLY 12/03/22 12/03/22 History subcutaneous pen injector (Trulicity) gabapentin 600 mg tablet 600 mg PO BID 12/03/22 12/03/22 History omeprazole 40 mg capsule,delayed 40 mg PO DAILY 12/03/22 12/03/22 History release Results Review: All pre-operative results and documents have been reviewed as part of the pre-operative evaluation. [facility] Past Medical History Medical History (Updated 12/08/22 @ 09:06 by Alvin Manzo MD) Anxiety Anxiety and depression Chronic GERD Dental infection Depression HTN (hypertension) Hyperlipidemia Kidney stone Morbid obesity with BMI of 40.0-44.9, adult 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 Umbilical hernia fixed in 2016 Ventral hernia without obstruction or gangrene Surgical History Surgical History H/O section x4 Hx of tonsillectomy Family History Family History Other Diabetes mellitus Hypertension Social History Social History Smoking packs per day: 0.5 Smoking cigarettes per day: 10.0 Years smoked: 25 Smoking pack-years: 12.50 Smoking status: Former smoker Tobacco type: cigarettes Alcohol intake: never Substance use: never Substance use type: does not use Lack of Transportation: No Lack of Food: Never True Current Housing: I Have Housing Concerned About Future Housing: No Difficulty Paying Gas/Electric Bills: No Difficulty Paying for Meds: No Currently Unemployed: No Education: High School Diploma/GED Difficulty w/ Childcare or Family Care: No Living arrangements: with family Gender identity (if verbalized by the patient): Female Spiritual care concerns: No Anes - Eval Final PreProcedure Day of Procedure 12/08/22 09:05 Patient weight: morbidly obese Heart: tachycardia Lungs: clear to auscultation Airway: Mallampati scale class III Neurological: alert and oriented Last oral intake: >/= 8 hours ASA classification: III Emergent: no Anesthetic plan: proceed Anesthesia type and monitoring: general GIVS and standard monitoring Results Review: All pre-operative results and documents have been reviewed as part of the pre-operative evaluation. Informed Consent: The patient's anesthetic plan and its attendant risks and benefits were discussed with the patient/family/POA. Questions were solicited and answers provided to the satisfaction of the patient/family/POA.
--- NOTE | 2022-12-08 13:22 | WPDANESEPPF ---
Anes - Initial Pre Proc Eval Procedure: Operation Date: 12/08/22 14:00 Proposed Procedures p Esophagogastroduodenoscopy - Rod Carmona MD Date/Time: 12/08/22 13:22 Surgeon: Rod Carmona MD Pre Op Diagnosis: Esophagitis Patient Data Age: 42 Gender: F Height: 1.6 m Weight: 104 kg Allergies Allergy/AdvReac Type Severity Reaction Status Date / Time No Known Allergies Allergy Verified 12/03/22 15:18 Home Medications Medication Instructions Recorded Confirmed Type venlafaxine 150 mg 150 mg PO DAILY 04/10/20 12/03/22 History capsule,extended release 24 hr (Effexor XR) tramadol 50 mg tablet 50 mg PO BID 09/08/20 12/03/22 History buspirone 10 mg tablet 10 mg PO BID 06/14/21 12/03/22 History irbesartan 150 mg tablet 150 mg PO DAILY 06/14/21 12/03/22 History atogepant 60 mg tablet (Qulipta) 60 mg PO DAILY 10/09/22 12/03/22 History phentermine 37.5 mg tablet 37.5 mg PO DAILY 10/09/22 12/03/22 History rosuvastatin 10 mg tablet (Crestor) 10 mg PO DAILY 10/10/22 12/03/22 History dulaglutide 0.75 mg/0.5 mL 0.75 mg subcut WEEKLY 12/03/22 12/03/22 History subcutaneous pen injector (Trulicity) gabapentin 600 mg tablet 600 mg PO BID 12/03/22 12/03/22 History omeprazole 40 mg capsule,delayed 40 mg PO DAILY 12/03/22 12/03/22 History release Patient hx anesthesia problems: none Family hx anesthesia problems: none Results Review: All pre-operative results and documents have been reviewed as part of the pre-operative evaluation. [facility] Past Medical History Medical History (Updated 12/08/22 @ 09:06 by Alvin Manzo MD) Anxiety Anxiety and depression Chronic GERD Dental infection Depression HTN (hypertension) Hyperlipidemia Kidney stone Morbid obesity with BMI of 40.0-44.9, adult 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 Umbilical hernia fixed in 2016 Ventral hernia without obstruction or gangrene Surgical History Surgical History H/O section x4 Hx of tonsillectomy Family History Family History Other Diabetes mellitus Hypertension Social History Social History Smoking packs per day: 0.5 Smoking cigarettes per day: 10.0 Years smoked: 25 Smoking pack-years: 12.50 Smoking status: Former smoker Tobacco type: cigarettes Alcohol intake: never Substance use: never Substance use type: does not use Lack of Transportation: No Lack of Food: Never True Current Housing: I Have Housing Concerned About Future Housing: No Difficulty Paying Gas/Electric Bills: No Difficulty Paying for Meds: No Currently Unemployed: No Education: High School Diploma/GED Difficulty w/ Childcare or Family Care: No Living arrangements: with family Gender identity (if verbalized by the patient): Female Spiritual care concerns: No Anes - Eval Final PreProcedure Day of Procedure 12/08/22 13:22 Patient weight: morbidly obese Heart: regular rate and rhythm Lungs: clear to auscultation Airway: Mallampati scale class III Neurological: alert and oriented Last oral intake: >/= 8 hours ASA classification: III Emergent: no Anesthetic plan: proceed Anesthesia type and monitoring: general GIVS and standard monitoring Results Review: All pre-operative results and documents have been reviewed as part of the pre-operative evaluation. Informed Consent: The patient's anesthetic plan and its attendant risks and benefits were discussed with the patient/family/POA. Questions were solicited and answers provided to the satisfaction of the patient/family/POA.
[2022-12-08 13:28] VITALS: BMI 39.2
[2022-12-08 13:30] VITALS: BP 127/88; PULSE 120; RESP 18; TEMP 36.2; O2SAT 100
[2022-12-08] MEDS: LACTATED RINGERS 1,000 ML 150 ML IV CONT (13:31)
--- NOTE | 2022-12-08 13:32 | PM.HPGS ---
History of Present Illness History of Present Illness Consent: Risks, benefits, and alternatives have been discussed and questions answered. Patient agrees to proceed with procedure. Chief complaint: Esophagitis Narrative: Kathi Herrera is a 42 year old female with gerd improved after using omeprazole. Had CT scan 10/2022 when had kidney stone that showed esophagitis, never had egd Review of Systems Constitutional: Constitutional: Denies headache(s) and Denies weakness Eyes: Eyes: Denies blurry vision ENT: Reports Normal hearing present, Denies headache(s) and Denies neck pain Cardiovascular: Cardiovascular: Denies chest pain and Denies dyspnea Respiratory: Respiratory: Denies dyspnea Gastrointestinal: Gastrointestinal: Reports no additional gastrointestinal complaints Genitourinary: Genitourinary: Denies dysuria Musculoskeletal: Musculoskeletal: Denies neck pain Integumentary/Breasts: Skin/Breast: Denies dry skin Neurologic: Reports Normal hearing present, Denies headache(s) and Denies weakness Psychiatric: Psychiatric: Denies anxiety Endocrine: Endocrine: Denies change in body appearance Hematologic/Lymphatic: Hematologic/Lymphatic: Denies easy bleeding Allergic/Immunologic: Allergic/Immunologic: Denies urticaria PMFSH Past Medical History Medical History (Updated 12/08/22 @ 13:36 by Rod Carmona MD) Abnormal CT scan, esophagus Anxiety Anxiety and depression Chronic GERD Dental infection Depression HTN (hypertension) Hyperlipidemia Kidney stone Morbid obesity with BMI of 40.0-44.9, adult 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 Umbilical hernia fixed in 2016 Ventral hernia without obstruction or gangrene Surgical History Surgical History H/O section x4 Hx of tonsillectomy Family History Family History Other Diabetes mellitus Hypertension Social History Social History Smoking packs per day: 0.5 Smoking cigarettes per day: 10.0 Years smoked: 25 Smoking pack-years: 12.50 Smoking status: Former smoker Tobacco type: cigarettes Alcohol intake: never Substance use: never Substance use type: does not use Lack of Transportation: No Lack of Food: Never True Current Housing: I Have Housing Concerned About Future Housing: No Difficulty Paying Gas/Electric Bills: No Difficulty Paying for Meds: No Currently Unemployed: No Education: High School Diploma/GED Difficulty w/ Childcare or Family Care: No Living arrangements: with family Gender identity (if verbalized by the patient): Female Spiritual care concerns: No Meds Home Medications and Allergies Home Medications Medication Instructions Recorded Confirmed Type venlafaxine 150 mg 150 mg PO DAILY 04/10/20 12/03/22 History capsule,extended release 24 hr (Effexor XR) tramadol 50 mg tablet 50 mg PO BID 09/08/20 12/03/22 History buspirone 10 mg tablet 10 mg PO BID 06/14/21 12/03/22 History irbesartan 150 mg tablet 150 mg PO DAILY 06/14/21 12/03/22 History atogepant 60 mg tablet (Qulipta) 60 mg PO DAILY 10/09/22 12/03/22 History phentermine 37.5 mg tablet 37.5 mg PO DAILY 10/09/22 12/03/22 History rosuvastatin 10 mg tablet (Crestor) 10 mg PO DAILY 10/10/22 12/03/22 History dulaglutide 0.75 mg/0.5 mL 0.75 mg subcut WEEKLY 12/03/22 12/03/22 History subcutaneous pen injector (Trulicity) gabapentin 600 mg tablet 600 mg PO BID 12/03/22 12/03/22 History omeprazole 40 mg capsule,delayed 40 mg PO DAILY 12/03/22 12/03/22 History release Allergies Allergy/AdvReac Type Severity Reaction Status Date / Time No Known Allergies Allergy Verified 12/08/22 13:28 Vital Signs Vital Signs - 24 hr 12/08/22 13:30 Temperature 97.1 F L Pulse Rate 120 H Respiratory Rate 18 Blood Pressur
[2022-12-08 13:47] VITALS: BP 91/66; PULSE 107; RESP 22; O2SAT 100
[2022-12-08 13:57] VITALS: BP 104/82; PULSE 106; RESP 18; O2SAT 100
[2022-12-08 14:07] VITALS: BP 127/82; PULSE 102; RESP 18; O2SAT 100
== END 2022-12-08 14:11 | disposition home or self-care (01) ==
PROVIDERS: PCP Emergency Medicine; Visit Provider Internal Medicine Gastroenterology
PROC: 0DJ08ZZ Inspection of Upper Intestinal Tract, Via Natural or Artificial Opening Endoscopic (ICD-10-PCS; CPT 43235; principal; 2022-12-08 14:00)
DX: K21.9 Gastro-esophageal reflux disease without esophagitis (principal); K44.9 Diaphragmatic hernia without obstruction or gangrene; I10 Essential (primary) hypertension; E78.5 Hyperlipidemia, unspecified; F41.8 Other specified anxiety disorders; E66.9 Obesity, unspecified; Z68.39 Body mass index [BMI] 39.0-39.9, adult; Z79.899 Other long term (current) drug therapy; Z87.891 Personal history of nicotine dependence
CPT/HCPCS: 43239; 88305; J2704; J7120

== ENCOUNTER 2023-06-01 01:35 | Day surgery (SDC) | payer OTHER, SELFPAY ==
[2023-05-30 08:31] VITALS: BMI 39.0
--- NOTE | 2023-05-30 10:53 | SUR.PREOP ---
Patient called regarding upcoming procedure. Left message with arrival time.
[2023-06-01 12:26] VITALS: BP 134/101; PULSE 108; RESP 16; TEMP 35.7; O2SAT 100
[2023-06-01] MEDS: LACTATED RINGERS 1,000 ML 150 ML IV CONT (12:27)
--- NOTE | 2023-06-01 12:29 | PM.HPGS ---
History of Present Illness History of Present Illness Consent: Risks, benefits, and alternatives have been discussed and questions answered. Patient agrees to proceed with procedure. Chief complaint: iron deficiency Narrative: Kathi Herrera is a 43 year old female here for first screening colonoscopy Review of Systems Constitutional: Constitutional: Denies headache(s) and Denies weakness Eyes: Eyes: Denies blurry vision ENT: Reports Normal hearing present, Denies headache(s) and Denies neck pain Cardiovascular: Cardiovascular: Denies chest pain and Denies dyspnea Respiratory: Respiratory: Denies dyspnea Gastrointestinal: Gastrointestinal: Reports no additional gastrointestinal complaints Genitourinary: Genitourinary: Denies dysuria Musculoskeletal: Musculoskeletal: Denies neck pain Integumentary/Breasts: Skin/Breast: Denies dry skin Neurologic: Reports Normal hearing present, Denies headache(s) and Denies weakness Psychiatric: Psychiatric: Denies anxiety Endocrine: Endocrine: Denies change in body appearance Hematologic/Lymphatic: Hematologic/Lymphatic: Denies easy bleeding Allergic/Immunologic: Allergic/Immunologic: Denies urticaria PMFSH Past Medical History Medical History (Updated 06/01/23 @ 12:30 by Rod Carmona MD) Abnormal CT scan, esophagus Anxiety Anxiety and depression Chronic GERD Colon cancer screening Dental infection Depression HTN (hypertension) Hyperlipidemia Kidney stone Morbid obesity with BMI of 40.0-44.9, adult 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 Umbilical hernia fixed in 2016 Ventral hernia without obstruction or gangrene Surgical History Surgical History H/O section x4 Hx of tonsillectomy Family History Family History Other Diabetes mellitus Hypertension Social History Social History Smoking packs per day: 0.5 Smoking cigarettes per day: 10.0 Years smoked: 25 Smoking pack-years: 12.50 Smoking status: Former smoker Tobacco type: cigarettes Alcohol intake: never Substance use: never Substance use type: does not use Lack of Transportation: No Lack of Food: Never True Current Housing: I Have Housing Concerned About Future Housing: No Difficulty Paying Gas/Electric Bills: No Difficulty Paying for Meds: No Currently Unemployed: No Education: High School Diploma/GED Difficulty w/ Childcare or Family Care: No Living arrangements: with family Gender identity (if verbalized by the patient): Female Spiritual care concerns: No Meds Home Medications and Allergies Home Medications Medication Instructions Recorded Confirmed Type venlafaxine 150 mg 150 mg PO DAILY 04/10/20 06/01/23 History capsule,extended release 24 hr (Effexor XR) tramadol 50 mg tablet 50 mg PO BID 09/08/20 06/01/23 History buspirone 10 mg tablet 10 mg PO BID 06/14/21 06/01/23 History atogepant 60 mg tablet (Qulipta) 60 mg PO DAILY 10/09/22 06/01/23 History phentermine 37.5 mg tablet 37.5 mg PO DAILY 10/09/22 06/01/23 History dulaglutide 0.75 mg/0.5 mL 0.75 mg subcut WEEKLY 12/03/22 06/01/23 History subcutaneous pen injector (Trulicity) gabapentin 600 mg tablet 600 mg PO BID 12/03/22 06/01/23 History omeprazole 40 mg capsule,delayed 40 mg PO DAILY 12/03/22 06/01/23 History release Allergies Allergy/AdvReac Type Severity Reaction Status Date / Time No Known Allergies Allergy Verified 06/01/23 12:24 Vital Signs Vital Signs - 24 hr 06/01/23 12:26 Temperature 96.3 F L Pulse Rate 108 H Respiratory Rate 16 Blood Pressure 134/101 H Pulse Oximetry 100 Oxygen Delivery Room Air Exam Const: General: comfortable and no acute distress HENMT: Face/Nose/Sinus: Normal nares present Eyes: General: appearance qiana
--- NOTE | 2023-06-01 12:52 | WPDANESEPPF ---
Anes - Initial Pre Proc Eval Procedure: Operation Date: 06/01/23 13:30 Proposed Procedures p Colonoscopy - Rod Carmona MD Date/Time: 06/01/23 12:52 Surgeon: Rod Carmona MD Pre Op Diagnosis: iron deficiency Patient Data Age: 43 Gender: F Height: 1.6 m Weight: 96.1 kg Last Vital Signs Temp 96.3 F L 06/01/23 12:26 Pulse 108 H 06/01/23 12:26 Resp 16 06/01/23 12:26 BP 134/101 H 06/01/23 12:26 Pulse Ox 100 06/01/23 12:26 O2 Del Method Room Air 06/01/23 12:26 Allergies Allergy/AdvReac Type Severity Reaction Status Date / Time No Known Allergies Allergy Verified 06/01/23 12:24 Home Medications Medication Instructions Recorded Confirmed Type venlafaxine 150 mg 150 mg PO DAILY 04/10/20 06/01/23 History capsule,extended release 24 hr (Effexor XR) tramadol 50 mg tablet 50 mg PO BID 09/08/20 06/01/23 History buspirone 10 mg tablet 10 mg PO BID 06/14/21 06/01/23 History atogepant 60 mg tablet (Qulipta) 60 mg PO DAILY 10/09/22 06/01/23 History phentermine 37.5 mg tablet 37.5 mg PO DAILY 10/09/22 06/01/23 History dulaglutide 0.75 mg/0.5 mL 0.75 mg subcut WEEKLY 12/03/22 06/01/23 History subcutaneous pen injector (Trulicity) gabapentin 600 mg tablet 600 mg PO BID 12/03/22 06/01/23 History omeprazole 40 mg capsule,delayed 40 mg PO DAILY 12/03/22 06/01/23 History release Patient hx anesthesia problems: none Family hx anesthesia problems: none Results Review: All pre-operative results and documents have been reviewed as part of the pre-operative evaluation. 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 Umbilical hernia fixed in 2016 Ventral hernia without obstruction or gangrene Surgical History Surgical History H/O section x4 Hx of tonsillectomy Family History Family History Other Diabetes mellitus Hypertension Social History Social History Smoking packs per day: 0.5 Smoking cigarettes per day: 10.0 Years smoked: 25 Smoking pack-years: 12.50 Smoking status: Former smoker Tobacco type: cigarettes Alcohol intake: never Substance use: never Substance use type: does not use Lack of Transportation: No Lack of Food: Never True Current Housing: I Have Housing Concerned About Future Housing: No Difficulty Paying Gas/Electric Bills: No Difficulty Paying for Meds: No Currently Unemployed: No Education: High School Diploma/GED Difficulty w/ Childcare or Family Care: No Living arrangements: with family Gender identity (if verbalized by the patient): Female Spiritual care concerns: No Anes - Eval Final PreProcedure Day of Procedure 06/01/23 12:52 Patient weight: obese Heart: regular rate and rhythm Lungs: clear to auscultation Airway: Mallampati scale class II Neurological: alert and oriented Last oral intake: >/= 8 hours ASA classification: III Emergent: no Anesthetic plan: proceed Anesthesia type and monitoring: general GIVS and standard monitoring Results Review: All pre-operative results and documents have been reviewed as part of the pre-operative evaluation. Informed Consent: The patient's anesthetic plan and its attendant risks and benefits were discussed with the patient/family/POA. Questions were solicited and answers provided to the satisfaction of the patient/family/POA.
[2023-06-01 12:57] VITALS: BP 111/76; PULSE 94; RESP 23; O2SAT 99
[2023-06-01 13:06] VITALS: BP 118/80; PULSE 94; RESP 23; O2SAT 99
[2023-06-01 13:16] VITALS: BP 128/86; PULSE 93; RESP 22; O2SAT 99
== END 2023-06-01 13:30 | disposition home or self-care (01) ==
PROVIDERS: PCP Emergency Medicine; Visit Provider Internal Medicine Gastroenterology
PROC: 0DJD8ZZ Inspection of Lower Intestinal Tract, Via Natural or Artificial Opening Endoscopic (ICD-10-PCS; CPT 45378; principal; 2023-06-01 13:30)
DX: Z12.11 Encounter for screening for malignant neoplasm of colon (principal); K63.5 Polyp of colon; K62.1 Rectal polyp; K64.8 Other hemorrhoids; K57.30 Diverticulosis of large intestine without perforation or abscess without bleeding; I10 Essential (primary) hypertension; E78.5 Hyperlipidemia, unspecified; E61.1 Iron deficiency; F41.8 Other specified anxiety disorders; K21.9 Gastro-esophageal reflux disease without esophagitis; E66.9 Obesity, unspecified; Z68.37 Body mass index [BMI] 37.0-37.9, adult; Z79.891 Long term (current) use of opiate analgesic; Z79.85 Long-term (current) use of injectable non-insulin antidiabetic drugs; Z87.891 Personal history of nicotine dependence
CPT/HCPCS: 45385; 88305; J2704; J7120

== ENCOUNTER 2023-09-14 11:06 | Outpatient (CLI) | payer OTHER, SELFPAY ==
--- NOTE | 2023-09-14 | ECG_ITS ---
Measurements Intervals [place] Rate: 115 P: 32 MT: 116 QRS: -4 QRSD: 96 T: 32 QT: 320 QTc: 443 Interpretive Statements SINUS TACHYCARDIA LOW QRS VOLTAGE IN PRECORDIAL LEADS INCOMPLETE RIGHT BUNDLE BRANCH BLOCK DELAYED PRECORDIAL R/S TRANSITION BORDERLINE T WAVE ABNORMALITY- ANT/INF LEADS BASELINE WANDER- III, AVF, V3 ABNORMAL ECG COMPARED TO ECG 10/09/2022 18:54:40 SINUS TACHYCARDIA NOW PRESENT INCOMPLETE RIGHT BUNDLE-BRANCH BLOCK NOW PRESENT Electronically Signed On 09-14-2023 12:20:41 CDT by Duran Vo D.O.
== END 2023-09-14 11:07 | disposition home or self-care (01) ==
LOC: ANHCARD 11:08
PROVIDERS: PCP Emergency Medicine; Visit Provider Emergency Medicine
DX: R00.0 Tachycardia, unspecified (principal); I45.10 Unspecified right bundle-branch block
CPT/HCPCS: 93005

== ENCOUNTER 2023-12-28 14:54 | Outpatient (CLI) | payer OTHER, SELFPAY ==
[2023-12-28 15:57] LABS: Cholesterol 313 mg/dL (0-200); HDL Direct 36 mg/dL; Triglycerides 365 mg/dL (<150)
[2023-12-28 16:08] LABS: LDL Cholesterol Direct 189 mg/dL
== END 2023-12-28 14:55 | disposition home or self-care (01) ==
LOC: ANHLAB 14:55
PROVIDERS: PCP Emergency Medicine; Visit Provider Internal Medicine Cardiovascular Disease
DX: E78.5 Hyperlipidemia, unspecified (principal)
CPT/HCPCS: 36415; 80061

== ENCOUNTER 2024-04-04 11:34 | Outpatient (CLI) | payer OTHER, SELFPAY ==
[2024-04-04 12:03] LABS: Alanine Aminotransferase 18 U/L (6-35); Albumin Level 4.2 g/dL (3.5-5.1); Alkaline Phosphatase 66 U/L (38-126); Anion Gap 6 mmol/L (4-12); Aspartate Amino Transferase 26 U/L (14-36); Bilirubin,Total 0.4 mg/dL (0.2-1.3); Blood Urea Nitrogen 18 mg/dL (7-17); Calcium 9.5 mg/dL (8.4-10.2); Carbon Dioxide 30 mmol/L (22-30); Chloride 103 mmol/L (98-107); Cholesterol 198 mg/dL (0-200); Estimated Glomerular Filt Rate 54; Glucose 98 mg/dL (65-110); HDL Direct 57 mg/dL; Potassium 4.4 mmol/L (3.4-5.0); Sodium 139 mmol/L (137-145); Triglycerides 212 mg/dL (<150)
[2024-04-04 12:14] LABS: LDL Cholesterol Direct 92 mg/dL
== END 2024-04-04 11:35 | disposition home or self-care (01) ==
LOC: ANHLAB 11:38
PROVIDERS: PCP Emergency Medicine; Visit Provider Internal Medicine Cardiovascular Disease
DX: E78.5 Hyperlipidemia, unspecified (principal)
CPT/HCPCS: 36415; 80053; 80061

== ENCOUNTER 2024-09-10 16:03 | Emergency (ER) | payer OTHER, SELFPAY ==
[2024-09-10 16:10] VITALS: BP 125/96; PULSE 107; RESP 16; TEMP 36.6; O2SAT 100
[2024-09-10 16:34] LABS: EDSTREPNEGPOS1 Negative (Negative)
--- NOTE | 2024-09-10 16:34 | ED_ITS ---
HPI - URI/Sore Throat General Chief Complaint: Upper Respiratory Infection Stated Complaint: Ears/Sore Throat Time Seen by Provider: 09/10/24 16:20 Source: patient, RN notes reviewed and old records reviewed Mode of arrival: ambulatory Limitations: no limitations History of Present Illness HPI Narrative: Patient presents with her daughter who has the same complaint. They are both complaining of sore throat that began about 1 week ago. Stated the onset of illness she had a fever, unsure of exactly how high the fever was. Has not had fever for several days, but does continue with runny nose and sore throat. Has been taking [id number]-[id number]-svseobp medications intermittently with moderate results. She is not in any distress, no drooling or stridor noted. Able to manage on secretions easily. Related Data Home Medications ?Medication ?Instructions ?Recorded ?Confirmed ?Last Taken ?Type venlafaxine 150 mg 150 mg PO DAILY 04/10/20 02/08/24 06/01/23 History capsule,extended release 24 hr (Effexor XR) tramadol 50 mg tablet 50 mg PO BID 09/08/20 02/08/24 06/01/23 History buspirone 10 mg tablet 10 mg PO BID 06/14/21 02/08/24 06/01/23 History atogepant 60 mg tablet (Qulipta) 60 mg PO DAILY 10/09/22 02/08/24 06/01/23 History phentermine 37.5 mg tablet 37.5 mg PO DAILY 10/09/22 02/08/24 10/10/22 History dulaglutide 0.75 mg/0.5 mL 0.75 mg subcut WEEKLY 12/03/22 02/08/24 Unknown History subcutaneous pen injector (Trulicity) gabapentin 600 mg tablet 600 mg PO BID 12/03/22 02/08/24 06/01/23 History omeprazole 40 mg capsule,delayed 40 mg PO DAILY 12/03/22 02/08/24 Unknown History release Allergies Allergy/AdvReac Type Severity Reaction Status Date / Time No Known Allergies Allergy Verified 02/08/24 15:50 Review of Systems Review of Systems: All systems reviewed & are unremarkable except as noted in HPI and below Constitutional: Constitutional: Reports no additional constitutional complaints ENT: Reports system reviewed and no additional complaints, except as documented and Reports sore throat Cardiovascular: Cardiovascular: Reports no additional cardiovascular complaints Respiratory: Respiratory: Reports no additional respiratory complaints Gastrointestinal: Gastrointestinal: Reports no additional gastrointestinal complaints [facility] Past Medical History Medical History (Updated 09/10/24 @ 16:40 by Lizzette Guerin APRN) Headache, migraine Colon cancer screening Abnormal CT scan, esophagus Morbid obesity with BMI of 40.0-44.9, adult Depression Anxiety Chronic GERD Hyperlipidemia 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 Kidney stone Dental infection Anxiety and depression Ventral hernia without obstruction or gangrene Umbilical hernia fixed in 2016 HTN (hypertension) Surgical History Surgical History History of hernia surgery History of nephrolithotomy with removal of calculi H/O section x4 Hx of tonsillectomy Family History Family History Mother Depression Hypertension Heart disease Other Diabetes mellitus Social History Social History Smoking packs per day: 0.5 Smoking cigarettes per day: 10.0 Years smoked: 25 Smoking pack-years: 12.50 Smoking status: Former smoker Tobacco type: cigarettes Alcohol intake: never Substance use: never Substance use type: does not use Lack of Transportation: No Lack of Food: Never True Current Housing: I Have Housing Concerned About Future Housing: No Difficulty Paying Gas/Electric Bills: No Difficulty Paying for Meds: No Currently Unemployed: No Education: High School Diploma/GED Difficulty w/ Childcare or Family Care: No Living arrangements: with family Gender identity (if verbalized by the patient): Female Spiritual care concerns: No Comments At the time of my signature, I reviewed and agree with the nursing past medical, surgical, social, and family history. There is no relevant family history pertinent to the patient complaint. Exam Const: General: cooperative, no acute distress, alert and awake Orientation/consciousness: oriented to person, oriented to place and oriented to time HENMT: Head: normal to inspection Ears: TM's normal bilaterally Mouth: Yes moist mucous membranes Throat: postnasal drainage Resp: Effort & Inspection: normal respiratory effort and able to speak in complete sentences Auscultation: clear to auscultation bilaterally, no crackles, no rales, no rhonchi and no wheezes Cardio: Palpation: normal PMI Rate: regular rate Rhythm: regular rhythm Heart sounds: S1 normal heart sound present and S2 normal heart sound present Neuro: General: oriented to person, oriented to place and oriented to time Cranial nerves: Yes CN's II-XII intact bilaterally Psych: Appearance: grossly normal Thought process: Normal thought process present Insight: Good insight present (Psych) Judgement: Good judgement present (Psych) Course Course Level of Care: Express Care Visit Vital Signs Vital signs: Vital Signs Temperature 97.8 F 09/10/24 16:10 Pulse Rate 107 H 09/10/24 16:10 Respiratory Rate 16 09/10/24 16:10 Blood Pressure 125/96 H 09/10/24 16:10 Pulse Oximetry 100 09/10/24 16:10 Oxygen Delivery Room Air 09/10/24 16:10 Temperature 97.8 F 09/10/24 16:10 Pulse Rate 107 H 09/10/24 16:10 Respiratory Rate 16 09/10/24 16:10 Blood Pressure 125/96 H 09/10/24 16:10 Pulse Oximetry 100 09/10/24 16:10 Oxygen Delivery Room Air 09/10/24 16:10 Reviewed MDM - URI/Sore Throat MDM Narrative Medical decision making narrative: Negative strep, culture pending. Reassuring physical exam, some postnasal drainage noted. Supportive care measures discussed. Discharge instructions reviewed with patient, as well as provided in writing per nursing staff. The instructions also include specific and strict return/GO TO THE ER as well as f/u information. All questions have been answered, and the patient deny any further questions with discharge and discharge plan. Some parts of this dictation were generated by voice recognition software and may contain typographical and/or grammatical inaccuracies. Differential Diagnosis Differential diagnosis: Likely upper respiratory infection, viral infection and pharyngitis Medical Records Attestation: I reviewed the patient's medical records. Lab Data Attestation: I reviewed the patient's lab results. Labs: Lab Results 09/10/24 Range/Units 16:15 POC Grp A Strep Screen Negative (Negative) Discharge Plan Discharge Clinical Impression: Upper respiratory infection Patient Disposition: Home, Self-Care Condition: Stable Instructions: Antibiotic Form, Cold Symptoms (ED) Additional Instructions: Take [id number] medications to treat symptoms. Follow package instructions. Emergency department for new or worsening symptoms. Follow-up with primary care provider Patient Language: Serbian Prescriptions: No Action venlafaxine [Effexor XR] 150 mg Capsule,Extended Release 24hr 150 mg PO DAILY buspirone 10 mg tablet 10 mg PO BID phentermine 37.5 mg tablet 37.5 mg PO DAILY Qulipta 60 mg tablet 60 mg PO DAILY tramadol 50 mg tablet 50 mg PO BID gabapentin 600 mg tablet 600 mg PO BID omeprazole 40 mg capsule,delayed release(DR/EC) 40 mg PO DAILY Trulicity 0.75 mg/0.5 mL pen injector 0.75 mg SUBCUT WEEKLY rosuvastatin 20 mg tablet 20 mg PO DAILY Qty: 90 2RF Follow-up/Referrals: Israel Newby MD [Primary Care Provider] - 1 Week Time of Disposition: 16:40
== END 2024-09-10 16:45 | disposition home or self-care (01) ==
PROVIDERS: Emergency Provider Nurse Practitioner Family; PCP Emergency Medicine
DX: J06.9 Acute upper respiratory infection, unspecified (principal); Z87.891 Personal history of nicotine dependence; E78.5 Hyperlipidemia, unspecified; I10 Essential (primary) hypertension; K21.9 Gastro-esophageal reflux disease without esophagitis; E66.01 Morbid (severe) obesity due to excess calories; Z68.39 Body mass index [BMI] 39.0-39.9, adult; F41.9 Anxiety disorder, unspecified; F32.A Depression, unspecified
CPT/HCPCS: 87081; 87880; 99213; G0463